=== PATIENT | female | born 1980 | race Caucasian/White ===

== ENCOUNTER 2016-05-24 09:49 | Observation (INO) | payer BC ==
[~2016-05-24] VITALS: Ht 167.6 cm; Wt 88.3 kg
[2016-05-24 09:58] VITALS: Ht 167.6 cm; Wt 88.3 kg
[2016-05-24] MEDS ORDERED: SODIUM CHLORIDE 0.9% 1000ML 500 ML IV STA (10:06)
[2016-05-24] MEDS ORDERED: KETOROLAC TROMETHAMINE 30 MG/ML VIAL IV STA (10:06)
[2016-05-24] MEDS ORDERED: PROMETHAZINE HCL INJ 12.5 MG in SODIUM CHLORIDE 0.9% 50ML 50 ML IV SCH (10:06)
[2016-05-24] MEDS ORDERED: PROMETHAZINE HCL INJ 25 MG/ML 1 ML VIAL IV STA (10:06)
[2016-05-24] MEDS ORDERED: MoRPHine SULFATE 4 MG/ML 1 ML CARP\\VIAL IV PRN (10:15)
--- NOTE | 2016-05-24 10:15 | EMERGENCY ROOM VISIT NOTE ---
History Report prepared by Jose Antonio: Jessica Brandt Under the Supervision of: Dr. Wilfrid Cordoba M.D. First contact with patient: 10:04 Chief Complaint: ABDOMINAL PAIN Stated Complaint: ECTOPIC Nursing Triage Summary: Abdominal pain with vaginal bleeding. States has irregular periods. She said there is a chance she could be . History of Present Illness The patient is a 35 year old female who presents to the Emergency Room with complaints of persistent abdominal pain since 0 last night. She describes the pain as feeling like "cramping" and rates it as a 10/10 in severity. She notes the pain does radiate into her back and she has never experienced anything like these symptoms before. She has not taken any medication for her discomfort yet. Last night she experienced some nausea, but did not vomit. The patient also admits to vaginal bleeding for the past 5 days. She states her last menstrual cycle was in mid-April and reports she has been getting her periods "twice a month" for the past "few months". She denies any history of painful periods in the past. She notes she did not think she was due for her period yet and states there is a chance she could be . She has never been before. The patient also admits to some breast tenderness for the past 2 to 3 days. She denies any cough or cold symptoms, fevers, dysuria or hematuria. Her VIDEO COORDINATOR is the [facility]. Source of History: patient Onset: 2199 last night Position: abdomen Symptom Intensity: 10/10 Quality: cramping Timing: other (persistent) Associated Symptoms: + nausea, No cough (cough or cold symptoms), No fevers , No urinary symptoms, No vomiting Review of Systems See HPI for pertinent positives & negatives. A total of 10 systems reviewed and were otherwise negative. Past Medical & Surgical Medical Problems: (1) Ectopic (2) ectopic Surgical Problems: (1) History of left knee surgery (2) History of right knee surgery (3) History of shoulder surgery (4) History of tonsillectomy Family History Diabetes mellitus FH: heart disease FHx: cancer Social History Smoking Status: Never Smoker Alcohol Use: occasionally Drug Use: none Marital Status: Housing Status: lives with family Occupation Status: unemployed Current/Historical Medications Scheduled Cholecalciferol (Vitamin D), 1 TAB PO DAILY Cyanocobalamin (Vitamin B12), 1 TAB PO DAILY Vitamins C & E (Vitamin C), 1 CAP PO DAILY Allergies Coded Allergies: Red Dye (Verified Allergy, Unknown, ANAPHYLAXIS, 05/24/16) Physical Exam Vital Signs Date Time Temp Pulse Resp B/P Pulse Ox O2 Delivery O2 Flow Rate FiO2 05/24/16 14:14 69 16 111/72 98 05/24/16 12:51 68 16 117/65 97 Room Air 05/24/16 12:16 68 16 117/65 95 Room Air 05/24/16 10:41 63 16 105/67 98 Room Air 05/24/16 09:58 36.6 70 18 127/78 96 Room Air Physical Exam GENERAL: Patient is in moderate distress secondary to pain. HEENT: No acute trauma, normocephalic atraumatic, mucous membranes moist, no nasal congestion, no scleral icterus. NECK: No stridor, no adenopathy, no meningismus, trachea is midline. LUNGS: Clear to auscultation bilaterally, no wheeze, no rhonchi, breath sounds equal. HEART: Without murmurs gallops or rubs, regular rate and rhythm. ABDOMEN: Moderately diffusely tender, no peritonitis, no hernia, no distention. EXTREMITIES: No cyanosis or edema, full range of motion of all the joints without pain or difficulty, no signs for acute trauma. NEUROLOGIC: Oriented x 3, no acute motor or sensory deficits, no focal weakness. SKIN: No rash, no jaundice, no diaphoresis. Medical Decision & Procedures ER Provider Diagnostic Interpretation: This X-Ray was reviewed and interpreted by myself and the radiologist. KUB IMPRESSION: 1. No evidence of pathologic bowel dilatation 2. Nonspecific left pelvic basin calcifications. Electronically signed by: Mian Argueta M.D. 05/24/2016 10:32 AM This Ultrasound was reviewed and interpreted by the radiologist and reviewed by myself. EXAMINATION: PELVIC ULTRASOUND (transabdominal and endovaginal scanning) IMPRESSION: 1. No intrauterine gestational sac identified 2. Complex fluid, likely hemorrhagic superior to the uterus in the right adnexal region 3. Equivocal saclike structure in the right adnexal region 4. Given the history of a positive test, and hemorrhagic right adnexal fluid, an ectopic must be considered. Correlation with clinical findings and quantitative beta hCGs is recommended Electronically signed by: Mian Argueta M.D. 05/24/2016 12:00 PM Laboratory Results 05/24/16 10:15 Red Blood Count 4.07, Mean Corpuscular Volume 92.9, Mean Corpuscular Hemoglobin 31.2, Mean Corpuscular Hemoglobin Concent 33.6, Mean Platelet Volume 11.0, Neutrophils (%) (Auto) 72.6, Lymphocytes (%) (Auto) 18.3, Monocytes (%) (Auto) 8.0, Eosinophils (%) (Auto) 0.6, Basophils (%) (Auto) 0.2, Neutrophils # (Auto) 7.64, Lymphocytes # (Auto) 1.93, Monocytes # (Auto) 0.84, Eosinophils # (Auto) 0.06, Basophils # (Auto) 0.02 05/24/16 10:15 Test 05/24/16 10:15 05/24/16 13:19 White Blood Count 10.52 K/uL (4.8-10.8) Red Blood Count 4.07 M/uL (4.2-5.4) Hemoglobin 12.7 g/dL (12.0-16.0) Hematocrit 37.8 % (37-47) Mean Corpuscular Volume 92.9 fL (80-100) Mean Corpuscular Hemoglobin 31.2 pg (25-34) Mean Corpuscular Hemoglobin Concent 33.6 g/dl (32-36) Platelet Count 239 K/uL (130-400) Mean Platelet Volume 11.0 fL (7.4-10.4) Neutrophils (%) (Auto) 72.6 % Lymphocytes (%) (Auto) 18.3 % Monocytes (%) (Auto) 8.0 % Eosinophils (%) (Auto) 0.6 % Basophils (%) (Auto) 0.2 % Neutrophils # (Auto) 7.64 K/uL (1.4-6.5) Lymphocytes # (Auto) 1.93 K/uL (1.2-3.4) Monocytes # (Auto) 0.84 K/uL (0.11-0.59) Eosinophils # (Auto) 0.06 K/uL (0-0.5) Basophils # (Auto) 0.02 K/uL (0-0.2) RDW Standard Deviation 42.4 fL (36.4-46.3) RDW Coefficient of Variation 12.5 % (11.5-14.5) Immature Granulocyte % (Auto) 0.3 % Immature Granulocyte # (Auto) 0.03 K/uL (0.00-0.02) Anion Gap 12.0 mmol/L (3-11) Est Creatinine Clear Calc Drug Dose 146.4 ml/min Estimated GFR () 136.9 Estimated GFR (Non- 118.1 BUN/Creatinine Ratio 23.0 (10-20) Calcium Level 8.8 mg/dl (8.5-10.1) Total Bilirubin 0.5 mg/dl (0.2-1) Aspartate Amino Transf (AST/SGOT) 13 U/L (15-37) Alanine Aminotransferase (ALT/SGPT) 22 U/L (12-78) Alkaline Phosphatase 59 U/L (45-117) Total Protein 7.1 gm/dl (6.4-8.2) Albumin 3.7 gm/dl (3.4-5.0) Globulin 3.4 gm/dl (2.5-4.0) Albumin/Globulin Ratio 1.1 (0.9-2) Lipase 140 U/L (73-393) Human Chorionic Gonadotropin, Qual POS (NEG) Human Chorionic Gonadotropin, Quant 235 mIU/mL Urine Color YELLOW Urine Appearance CLEAR (CLEAR) Urine pH 6.0 (4.5-7.5) Urine Specific [place] 1.006 (1.000-1.030) Urine Protein NEG (NEG) Urine Glucose (UA) NEG (NEG) Urine Ketones NEG (NEG) Urine Occult Blood TRACE (NEG) Urine Nitrite NEG (NEG) Urine Bilirubin NEG (NEG) Urine Urobilinogen NEG (NEG) Urine Leukocyte Esterase NEG (NEG) Urine WBC (Auto) 0 /hpf (0-5) Urine RBC (Auto) 0-4 /hpf (0-4) Urine Hyaline Casts (Auto) 1-5 /lpf (0-5) Urine Epithelial Cells (Auto) 5-10 /lpf (0-5) Urine Bacteria (Auto) NEG (NEG) Laboratory results reviewed by me. Medications Administered Medications (Trade) Dose Ordered Sig/Asif Route Start Time Stop Time Status Last Admin Dose Admin Sodium Chloride (Nss 1000ml) 500 ml @ 999 mls/hr Q31M STAT IV 05/24/16 10:06 05/24/16 10:36 DC 1/14/17 10:24 999 MLS/HR Morphine Sulfate (MoRPHine SULFATE INJ) 4 mg Q30M PRN IV 05/24/16 10:15 06/07/16 10:14 05/24/16 10:41 4 MG Ketorolac Tromethamine 30 mg 30 mg NOW STAT IV 05/24/16 10:06 05/24/16 10:11 DC 05/24/16 10:41 30 MG Promethazine HCl/ Sodium Chloride (Phenergan Inj/ Nss 50ml) 50.5 ml @ 202 mls/hr TODAY@1006 IV 05/24/16 10:06 05/24/16 11:30 DC 05/24/16 10:41 202 MLS/HR Bupivacaine HCl (Marcaine 0.5% MPF Inj) 12 ml ONE ONCE INJ 05/24/16 16:54 05/24/16 16:55 DC 05/24/16 16:00 12 ML ED Course 1005: The patient was evaluated in room B12B. A complete history and physical exam was performed. 1006: Promethazine HCl 12.5 mg/NSS 50.5 ml @ 202 mls/hr IV, Toradol 30 mg IV, NSS 500 ml @ 999 mls/hr IV. 1015: Morphine Sulfate 4 mg IV. 1219: I reevaluated the patient. I discussed my plan to have VIDEO COORDINATOR come evaluate her and she verbalized complete understanding and agreement. 1226: I discussed the patients case with Skyler Berumen VIDEO COORDINATOR. He would like her to remain NPO and will be in to evaluate her. 1405: I discussed the patient's case with Skyler Berumen VIDEO COORDINATOR. He is going to take the patient to the OR. Medical Decision The differential diagnoses considered include: Intestinal colic, painful menses , or ectopic , biliary colic, appendicitis, pancreatitis, UTI and viral illness. There is no leukocytosis or worrisome anemia. No significant electrolyte abnormality, kidney failure or hepatitis. There is no pancreatitis. testing is positive, beta quantitative is quite low. KUB is unremarkable. Pelvic ultrasound is suggestive of a possible right-sided ruptured ectopic . Urinalysis does not show evidence for infection. The patient received IV saline, IV Toradol, IV morphine and IV Phenergan, she is more comfortable but still having pain. I spoke with the on-call VIDEO COORDINATOR doctor. The patient was seen by VIDEO COORDINATOR. The patient is going to the operating room for the possibility of a ruptured ectopic . I talked to the patient about my concerns and findings. Consults Time Called: 1218 Consulting Physician: Skyler Berumen VIDEO COORDINATOR Returned Call: 1226 I discussed the patients case with Skyler Berumen VIDEO COORDINATOR. He would like her to remain NPO and will be in to evaluate her. Impression Primary Impression: Vaginal bleeding Additional Impressions: Pelvic hematoma Scribe Attestation The scribe's documentation has been prepared under my direction and personally reviewed by me in its entirety. I confirm that the note above accurately reflects all work, treatment, procedures, and medical decision making performed by me. Departure Information Dispostion Being Evaluated By Surgeon (The patient is being taken to the OR by Skyler Berumen VIDEO COORDINATOR) Referrals [place] [facility] (PCP) Patient Instructions [facility] Problem Qualifiers
[2016-05-24 10:34] LABS: BASO % 0.2 %; BASO ABS # 0.02 K/uL (0-0.2); COMPLETE YES; EOS % 0.6 %; HEMATOCRIT 37.8 % (37-47); IG% 0.3 %; LYMPH % 18.3 %; LYMPH ABS # 1.93 K/uL (1.2-3.4); MEAN CELL VOLUME 92.9 fL (80-100); MEAN CORPUSCULAR HEMOGLOBIN 31.2 pg (25-34); MEAN CORPUSCULAR HGB CONC 33.6 g/dl (32-36); NEUT % 72.6 %; PLATELET COUNT 239 K/uL (130-400); RED BLOOD COUNT 4.07 M/uL (4.2-5.4); WHITE BLOOD COUNT 10.52 K/uL (4.8-10.8)
--- NOTE | 2016-05-24 10:34 | DIAGNOSTIC IMAGING REPORT ---
KUB CLINICAL HISTORY: Diffuse abdominal pain. COMPARISON STUDY: No previous studies for comparison. FINDINGS: There is no pathologic bowel dilatation. There are nonspecific left pelvic basin calcifications. There are no calcification suspicious for renal calculi. IMPRESSION: 1. No evidence of pathologic bowel dilatation 2. Nonspecific left pelvic basin calcifications. Electronically signed by: Mian Argueta M.D. 05/24/2016 10:32 AM Dictated Date/Time: 05/24/2016 10:31 AM
[2016-05-24 10:52] LABS: CALCIUM 8.8 mg/dl (8.5-10.1); CREATININE 0.6 mg/dl (0.60-1.20); POTASSIUM 3.9 mmol/L (3.5-5.1)
[2016-05-24] MEDS ORDERED: CHOL400T5 PO (10:52)
[2016-05-24] MEDS ORDERED: VITACAP26 PO (10:52)
[2016-05-24] MEDS ORDERED: CYAN100020 PO (10:52)
[2016-05-24 10:54] LABS: ALB/GLOB RATIO 1.1 (0.9-2)
[2016-05-24 10:55] LABS: PREG INTERNAL NEGATIVE QC NEG CLEAR BACKGROUND; PREG INTERNAL POSITIVE QC POS CONTROL LINE
--- NOTE | 2016-05-24 12:02 | DIAGNOSTIC IMAGING REPORT ---
EXAMINATION: PELVIC ULTRASOUND (transabdominal and endovaginal scanning) CLINICAL HISTORY: Pelvic pain, nausea, vomiting, diarrhea. POSITIVE TEST. COMPARISON STUDY: None FINDINGS: The uterus measured 9.2 x 3.9 x 5.4 cm.. The endometrial stripe measured 6 mm. No intrauterine gestational sac is visualized.. The right ovary measured 22 x 22 x 19 mm. There is an equivocal saclike structure within the right adnexal region. There is complex free fluid/blood in the right adnexal region.. The left ovary measured 28 x 13 x 28 mm.. There is no ultrasonographic evidence of ovarian torsion. It should be noted that ovarian torsion can be present with normal Doppler ultrasonographic findings. The possibility of an ectopic must be entertained. An early intrauterine gestation, with a hemorrhagic right ovarian cyst could appear similar. Clinical correlation as well as correlation with quantitative beta hCGs is recommended. IMPRESSION: 1. No intrauterine gestational sac identified 2. Complex fluid, likely hemorrhagic superior to the uterus in the right adnexal region 3. Equivocal saclike structure in the right adnexal region 4. Given the history of a positive test, and hemorrhagic right adnexal fluid, an ectopic must be considered. Correlation with clinical findings and quantitative beta hCGs is recommended Electronically signed by: Mian Argueta M.D. 05/24/2016 12:00 PM Dictated Date/Time: 05/24/2016 11:55 AM
[2016-05-24 13:39] LABS: URINE APPEARANCE CLEAR (CLEAR); URINE BILIRUBIN NEG (NEG); URINE COLOR YELLOW; URINE NITRITE NEG (NEG); URINE SPECIFIC GRAVITY 1.006 (1.000-1.030); UROBILINOGEN NEG (NEG); ZZUR CULT IF INDIC CLEAN CATCH NO
[2016-05-24 13:44] LABS: MANUAL MICROSCOPIC REQUIRED? NO; REVIEW REQ? NO
[2016-05-24] MEDS ORDERED: LACTATED RINGER'S 1000ML 1,000 ML IV SCH (13:49)
[2016-05-24] MEDS ORDERED: ONDANSETRON INJ 2 MG/ML 2 ML VIAL IV PRN ×3 (14:00→17:30)
[2016-05-24] MEDS ORDERED: ROCURONIUM BROMIDE 10 MG/ML 5 ML VIAL ONE (14:06)
[2016-05-24] MEDS ORDERED: NEOSTIGMINE METHYLSULFATE 5 MG/5 ML SYR ONE (14:06)
[2016-05-24] MEDS ORDERED: LIDOCAINE HCL 2% 2 ML VIAL (20MG/ML) ONE (14:06)
[2016-05-24] MEDS ORDERED: FENTANYL CITRATE INJ 50 MCG/1 ML 2 ML VIAL ONE (14:06)
[2016-05-24] MEDS ORDERED: MIDAZOLAM HCL 1 MG/ML 2ML VIAL ONE (14:06)
[2016-05-24] MEDS ORDERED: GLYCOPYRROLATE INJ 0.2 MG/ML VIAL ONE ×5 (14:06→15:39)
[2016-05-24] MEDS ORDERED: PROPOFOL IV EMULSION 10 MG/ML 20 ML VIAL IV ONE (14:06)
[2016-05-24] MEDS ORDERED: DEXAMETHASONE SOD INJ 4 MG/ML VIAL ONE ×2 (14:06→15:39)
[2016-05-24] MEDS ORDERED: ONDANSETRON INJ 2 MG/ML 2 ML VIAL ONE (14:06)
[2016-05-24] MEDS ORDERED: SUCCINYLCHOLINE CHLORIDE 20 MG/ML 10 ML VIAL IV ONE (14:35)
--- NOTE | 2016-05-24 14:43 | HISTORY & PHYSICAL EXAMINATION ---
DATE OF ADMISSION: 05/24/2016 CHIEF COMPLAINT: Abdominal pain. HISTORY OF PRESENT ILLNESS: The patient is a 35-year-old white female para 0-0-0-0 last menstrual period mid April unsure has been having irregular cycles last several months having 2 periods per month. Prior to that she denied ever having any abnormal cycles. She states that she has been trying to conceive, has not had any recent visits to our office and otherwise has been healthy. She states that last Thursday she started having some vaginal bleeding, passed a couple clots, does not know if this was tissue. She presented today with acute onset of right lower quadrant pain associated with some mild back pain and generalized epigastric pain and also radiating into the left. Hemodynamically she has been stable. She states that she has no history of in the past, no abortions and has not had any STDs in the past. The pain was rated as 10/10 on admission. She currently rates the pain as an 8/10. She has not had any nausea or vomiting. Her bowels are normal. Her appetite is good. She feels hungry. FAMILY HISTORY: Noncontributory. PAST MEDICAL HISTORY: Negative. PAST SURGICAL HISTORY: Positive for bilateral knee surgery, shoulder surgery and tonsillectomy. She also had a LEEP approximately 7 years ago for an abnormal Pap smear. SOCIAL HISTORY: Denies smoking, alcohol or drug use. She is trying to conceive and otherwise healthy. ALLERGIES: INCLUDE RED DYE. MEDICATIONS: Vitamin D, vitamin B12, and vitamin C. PHYSICAL EXAMINATION: VITAL SIGNS: Temperature 36.6, pulse 70, respirations 18, blood pressure 127/78, pulse ox is 96 on room air. GENERAL APPEARANCE: The patient is alert and oriented with no acute distress. LUNGS: Clear to auscultation. HEART: Regular rate and rhythm. ABDOMEN: Slightly tender, both on the right and left. There is no rebound or guarding. There is no abdominal distention, no evidence of any mass or hernia. EXTREMITIES: Within normal limits. NEUROLOGICALLY: Intact. SKIN: Warm and dry. No rash. PELVIC EXAMINATION: Reveals that cervix is closed. There is minimal spotting in the vagina. There is no tissue noted. There is no cervical motion tenderness and bilateral exam reveals tenderness but no rebound or guarding. LABORATORY DATA: White blood cell count 10.52, hemoglobin is 12.7, hematocrit is 37.8, platelet count is 239. Electrolytes are within normal limits. Her quantitative hCG is 235. Her urine is negative. IMAGING STUDIES: KUB no evidence of bowel problems or any pelvic calcifications. Pelvic ultrasound reveals no intrauterine gestational sac. The right ovary is 22 x 22 x 19 mm, equivocal sac like structure within the right adnexa, some complex free fluid or blood in the right adnexal region, left ovary was normal. Doppler findings are negative. ASSESSMENT: 1. Possible ectopic . 2. Possible hemorrhagic ovarian cyst, or. 3. Possible failed early intrauterine . PLAN: I discussed in detail with the patient and her will bring the patient to the OR for diagnostic laparoscopy to evaluate possibility of an ectopic versus an ovarian hemorrhagic cyst. Explained in detail, the patient will consent and all consents were obtained.
[2016-05-24] MEDS ORDERED: BUPIVACAINE 0.5 % 5 MG/1 ML MPF 30ML VIAL INJ ONE (16:54)
[2016-05-24] MEDS ORDERED: SODIUM CHLORIDE 0.9% 1000ML 1,000 ML IV SCH (17:13)
[2016-05-24] MEDS ORDERED: OXYCODONE/ACETAMINOPHEN 5-325 TAB PO PRN ×2 (17:15)
[2016-05-24] MEDS ORDERED: MoRPHine SULFATE 2 MG/ML CARP IV PRN ×2 (17:15)
[2016-05-24] MEDS ORDERED: HYDROCODONE/ACETAMOPHEN 5/325MG TAB PO PRN ×4 (17:15)
[2016-05-24] MEDS ORDERED: IBUPROFEN 600 MG TAB PO PRN (17:15)
[2016-05-24] MEDS ORDERED: KETOROLAC TROMETHAMINE 30 MG/ML VIAL IV. PRN (17:15)
--- NOTE | 2016-05-24 17:19 | [facility] Post Operative Brief Note ---
Immediate Operative Summary Operative Date May 24, 2016. Pre-Operative Diagnosis Abdominal pain, possible ectopic Post-Operative Diagnosis Left ruptured ectopic hemoperitoneum Procedure(s) Performed Diagnostic laparoscopy, left partial salpingectomy, evacuation of left hemoperitoneum Surgeon Dr. Kuhn Truck Chauffeur Surgeon(s) Shonna RN Estimated Blood Loss 400 ml Findings ruptured left ectopic hemoperitoneum Fluids (cc crystalloids) LR Specimens A: left ruptured ectopic , portion of left fallopian tube Drains Rice with clear urine Anesthesia General Complication(s) None Disposition Recovery Room / PACU
[2016-05-24] MEDS ORDERED: EpHEDrine SULFATE INJ 50 MG/ML AMP IV PRN (17:30)
[2016-05-24] MEDS ORDERED: FENTANYL CITRATE INJ 50 MCG/1 ML 2 ML VIAL IV PRN (17:30)
[2016-05-24] MEDS ORDERED: HYDROmorphone INJ 1 MG/ML SYR IV PRN (17:30)
[2016-05-24] MEDS ORDERED: ATROPINE SULFATE 0.1 MG/ML 5ML SYR IV PRN (17:30)
--- NOTE | 2016-05-24 18:00 | Anesthesiology Progress Note ---
Anesthesia Post Op Note Date & Time May 24, 2016 at 17:59 Vital Signs Pain Intensity: 0 Vital Signs Past 12 Hours Date Time Temp Pulse Resp B/P Pulse Ox O2 Delivery O2 Flow Rate FiO2 05/24/16 17:20 37.1 78 11 112/69 100 Mask 10 05/24/16 14:14 69 16 111/72 98 05/24/16 12:51 68 16 117/65 97 Room Air 05/24/16 12:16 68 16 117/65 95 Room Air 05/24/16 10:41 63 16 105/67 98 Room Air 05/24/16 09:58 36.6 70 18 127/78 96 Room Air Notes Mental Status: alert / awake / arousable, participated in evaluation Pt Amnestic to Procedure: Yes Nausea / Vomiting: adequately controlled Pain: adequately controlled Airway Patency, RR, SpO2: stable & adequate BP & HR: stable & adequate Hydration State: stable & adequate Anesthetic Complications: no major complications apparent
[2016-05-24] MEDS ORDERED: IV FLUIDS COMPLETED PRN (18:15)
[2016-05-24 18:25] VITALS: BP 106/67; PULSE 70; TEMP 36.8; O2SAT 94
--- NOTE | 2016-05-24 18:31 | OPERATIVE REPORT ---
DATE OF OPERATION: 05/24/2016 PREOPERATIVE DIAGNOSIS: Abdominal pain, possible ectopic . POSTOPERATIVE DIAGNOSIS: Ruptured left ectopic and hemoperitoneum. PROCEDURES PERFORMED: Operative laparoscopy, left partial salpingectomy and evacuation of hemoperitoneum. SURGEON: Howard Kuhn MD AUTO BRAKE MECHANIC: Shonna, the nurse. EBL: 400 mL. FINDINGS: Ruptured left ectopic and hemoperitoneum. FLUIDS: LR SPECIMENS: Left portion of the fallopian tube with ectopic . DRAINS: Rice with clear urine. ANESTHESIA: General. COMPLICATIONS: None. The patient sent to PACU for recovery. CLINICAL HISTORY: The patient is a 35-year-old female, para 0-0-0-0, last menstrual period in April, who presents to the ER today with acute onset of lower abdominal pain, both right and left. Her test was positive. She had an hCG today of 235. She had diffuse pain. Ultrasound revealed possible ectopic. The patient was taken to the operating room for diagnostic and operative laparoscopy. DESCRIPTION OF PROCEDURE: Under satisfactory general anesthesia, the patient was prepped and draped in usual sterile fashion. After the patient was placed in the dorsal lithotomy position, a Rice catheter was placed. A weighted speculum was placed in the posterior vault of the vagina. An Allis clamp was placed on the anterior lip of the cervix and a sponge stick was then used for uterine manipulation. Attention was then directed abdominally where approximately 5 mL of 0.5% Marcaine were instilled infraumbilically. A stab wound was made with a #11 knife, Veress needle was inserted and this was tested with saline. Approximately 3 liters of carbon dioxide gas was then used creating a pneumoperitoneum. Veress needle was withdrawn. The incision was widened to approximately 1 cm and a #11 trocar was then inserted under direct visualization with laparoscope. Contents of the pelvic cavity were visualized. There was blood in the pelvis. The upper abdomen was explored and there was blood in the right paracolic gutter, upwards towards the liver. A second puncture was made in the midline and a 5 mm trocar was then inserted. Injection Molding Machine Tender was then used irrigating, clearing away the clots, debris and all the blood. The identification of left tubal that had ruptured was noted. The right tube and ovary were within normal limits. There was a right paratubal cyst, several cysts actually. A third puncture was then made on the left side and a 5 mm was inserted under direct visualization. A grasper was then inserted, grabbing the tube, then using the Harmonic scalpel and Kleppingers the tube was then removed partially with a partial salpingectomy done. After this procedure, the site of the resection was visualized and was dry. The EndoCatch bag was then inserted in the midline. The grasper was then used to place the ectopic in the bag. The bag was then closed and then removed through the main port intact. The specimen was then submitted to pathology. After this, the contents of the pelvic and abdominal cavity were then irrigated. The patient was then placed in a steep reverse Trendelenburg position, suctioning most of the blood that had accumulated. The estimated blood loss was approximately 400 mL. Final sponge, needle and instrument count were found to be correct. All remaining ports were then removed. The 2 instruments from the vagina were removed. Closure of the incisions were with 0 Vicryl for a deep stitch followed by 4-0 Monocryl and Steri-Strips. Clear urine was noted from the Rice. The patient was then placed supine and before the end of the procedure, 0.5% Marcaine was instilled in the suprapubic incision and in the left incision as well. I attest to the content of the Intraoperative Record and any orders documented therein. Any exceptions are noted below. KIM
[2016-05-24] MEDS ORDERED: NURSING VERBAL MED ORDER ONE (20:15)
[2016-05-24 20:35] VITALS: BP 109/71; PULSE 103; TEMP 36.9; O2SAT 96
[2016-05-24 23:15] VITALS: BP 115/70; PULSE 95; TEMP 36.4; O2SAT 94
[2016-05-25 04:42] LABS: HEMATOCRIT 34.6 % (37-47); MEAN CELL VOLUME 94.5 fL (80-100); MEAN CORPUSCULAR HEMOGLOBIN 31.4 pg (25-34); MEAN PLATELET VOLUME 10.9 fL (7.4-10.4); PLATELET COUNT 234 K/uL (130-400); RED BLOOD COUNT 3.66 M/uL (4.2-5.4)
[2016-05-25 05:07] LABS: MEAN CORPUSCULAR HGB CONC 33.2 g/dl (32-36)
[2016-05-25] MEDS ORDERED: OXYC-57 PO (06:55)
[2016-05-25] MEDS ORDERED: FRRS300 PO (06:55)
[2016-05-25] MEDS ORDERED: MTR600X PO (06:55)
--- NOTE | 2016-05-25 06:57 | Discharge Instructions ---
Discharge Instructions Admission Reason for Admission: Ectopic Discharge Discharge Diagnosis / Problem: RUPTURED ECTOPIC Discharge Goals Goal(s): Routine recovery after surgery Activity Recommendations Activity Limitations: as noted below Lifting Limitations: no more than 10 pounds Exercise/Sports Limitations: gradually increase as tolerated May Resume Sexual Activity: after follow-up appointment Shower/Bathe: no limitations Driving or Machine Use: resume 3 days after discharge . Instructions / Follow-Up Instructions / Follow-Up ACTIVITY RECOMMENDATIONS: * Avoid tampons, douching, hot tubs, pools, and intercourse until bleeding has stopped. * May shower as usual. * No strenuous activity for 24-48 hours. After 24-48 hours, you may do anything you feel like doing (driving and sports are okay). SPECIAL CARE INSTRUCTIONS: Special Diet: * Mild nausea may occur in the immediate post-operative period. * Take clear liquids such as tea, cola or bouillon until all nausea has subsided; you may then resume your normal diet. Special Care: * Light bleeding and vaginal spotting can last from a few days to 3-4 weeks. Call your doctor if bleeding becomes heavier than the heaviest part of your period. * Check your temperature twice a day for one week. If it goes above 100.4 degrees Fahrenheit (38.0 Celsius), notify your doctor. * Call your doctor's office for an appointment for 6 weeks after your surgery. FOLLOW-UP VISIT: Call your doctor's office for an appointment for 6 weeks after your surgery. Current Hospital Diet Patient's current hospital diet: Regular Diet Discharge Diet Recommended Diet: Regular Diet Fluid Restriction: None Procedures Procedures Performed: Diagnostic laparoscopy, left partial salpingectomy, evacuation of left hemoperitoneum Pending Studies Studies pending at discharge: no Medical Emergencies . Who to Call and When: Medical Emergencies: If at any time you feel your situation is an emergency, please call 911 immediately. . Non-Emergent Contact Non-Emergency issues call your: Primary Care Provider . . "Provider Documentation" section prepared by Howard Kuhn. VTE Core Measure Inpt VTE Proph given/why not?: Treatment not indicated
[2016-05-25 07:15] VITALS: BP 106/63; PULSE 75; TEMP 36.6; O2SAT 97
--- NOTE | 2016-05-25 07:16 | Surgery Progress Note ---
Surgery Progress Note Date of Service May 25, 2016. Subjective Post OP Day: 1 + ambulating, + diet, + feeling well, + flatus, + pain controlled Objective Vital Signs: Date Time Temp Pulse Resp B/P Pulse Ox O2 Delivery O2 Flow Rate FiO2 05/24/16 23:15 Room Air 05/24/16 23:15 36.4 95 18 115/70 94 Room Air 05/24/16 20:35 36.9 103 18 109/71 96 Room Air 05/24/16 18:25 36.8 70 16 106/67 94 Room Air 05/24/16 18:25 94 Room Air 05/24/16 18:09 68 17 05/24/16 18:09 68 17 97 05/24/16 18:08 106/66 05/24/16 18:03 104/58 05/24/16 18:01 36.8 05/24/16 17:59 72 14 95 05/24/16 17:59 72 19 96 05/24/16 17:58 104/64 05/24/16 17:55 72 23 05/24/16 17:55 72 23 96 05/24/16 17:53 102/60 05/24/16 17:50 63 18 94 05/24/16 17:50 67 18 94 05/24/16 17:48 100/62 05/24/16 17:43 98/69 05/24/16 17:40 61 18 100 05/24/16 17:40 62 18 05/24/16 17:38 110/59 05/24/16 17:35 67 22 100 05/24/16 17:35 64 20 100 05/24/16 17:33 107/61 05/24/16 17:29 98/75 05/24/16 17:25 64 21 05/24/16 17:25 64 21 100 05/24/16 17:23 109/65 05/24/16 17:20 69 23 100 05/24/16 17:20 37.1 78 11 112/69 100 Mask 10 05/24/16 17:20 67 18 100 05/24/16 14:14 69 16 111/72 98 05/24/16 12:51 68 16 117/65 97 Room Air 05/24/16 12:16 68 16 117/65 95 Room Air 05/24/16 10:41 63 16 105/67 98 Room Air 05/24/16 09:58 36.6 70 18 127/78 96 Room Air Abdomen: non tender, non distended, soft Incision(s): clean, dry, intact Extremities: non-tender, normal inspection, no pedal edema Laboratory Results: Results Past 24 Hours Test 05/24/16 10:15 05/24/16 13:19 05/25/16 04:30 Range/Units White Blood Count 10.52 13.70 4.8-10.8 K/uL Red Blood Count 4.07 3.66 4.2-5.4 M/uL Hemoglobin 12.7 11.5 12.0-16.0 g/dL Hematocrit 37.8 34.6 37-47 % Mean Corpuscular Volume 92.9 94.5 80-100 fL Mean Corpuscular Hemoglobin 31.2 31.4 25-34 pg Mean Corpuscular Hemoglobin Concent 33.6 33.2 32-36 g/dl Platelet Count 239 234 130-400 K/uL Mean Platelet Volume 11.0 10.9 7.4-10.4 fL Neutrophils (%) (Auto) 72.6 % Lymphocytes (%) (Auto) 18.3 % Monocytes (%) (Auto) 8.0 % Eosinophils (%) (Auto) 0.6 % Basophils (%) (Auto) 0.2 % Neutrophils # (Auto) 7.64 1.4-6.5 K/uL Lymphocytes # (Auto) 1.93 1.2-3.4 K/uL Monocytes # (Auto) 0.84 0.11-0.59 K/uL Eosinophils # (Auto) 0.06 0-0.5 K/uL Basophils # (Auto) 0.02 0-0.2 K/uL RDW Standard Deviation 42.4 44.0 36.4-46.3 fL RDW Coefficient of Variation 12.5 12.7 11.5-14.5 % Immature Granulocyte % (Auto) 0.3 % Immature Granulocyte # (Auto) 0.03 0.00-0.02 K/uL Sodium Level 141 136-145 mmol/L Potassium Level 3.9 3.5-5.1 mmol/L Chloride Level 107 98-107 mmol/L Carbon Dioxide Level 22 21-32 mmol/L Anion Gap 12.0 3-11 mmol/L Blood Urea Nitrogen 14 7-18 mg/dl Creatinine 0.60 0.60-1.20 mg/dl Est Creatinine Clear Calc Drug Dose 146.4 ml/min Estimated GFR () 136.9 Estimated GFR (Non- 118.1 BUN/Creatinine Ratio 23.0 10-20 Random Glucose 94 70-99 mg/dl Calcium Level 8.8 8.5-10.1 mg/dl Total Bilirubin 0.5 0.2-1 mg/dl Aspartate Amino Transf (AST/SGOT) 13 15-37 U/L Alanine Aminotransferase (ALT/SGPT) 22 12-78 U/L Alkaline Phosphatase 59 45-117 U/L Total Protein 7.1 6.4-8.2 gm/dl Albumin 3.7 3.4-5.0 gm/dl Globulin 3.4 2.5-4.0 gm/dl Albumin/Globulin Ratio 1.1 0.9-2 Lipase 140 73-393 U/L Human Chorionic Gonadotropin, Qual POS NEG Human Chorionic Gonadotropin, Quant 235 113 mIU/mL Urine Color YELLOW Urine Appearance CLEAR CLEAR Urine pH 6.0 4.5-7.5 Urine Specific [place] 1.006 1.000-1.030 Urine Protein NEG NEG Urine Glucose (UA) NEG NEG Urine Ketones NEG NEG Urine Occult Blood TRACE NEG Urine Nitrite NEG NEG Urine Bilirubin NEG NEG Urine Urobilinogen NEG NEG Urine Leukocyte Esterase NEG NEG Urine WBC (Auto) 0 0-5 /hpf Urine RBC (Auto) 0-4 0-4 /hpf Urine Hyaline Casts (Auto) 1-5 0-5 /lpf Urine Epithelial Cells (Auto) 5-10 0-5 /lpf Urine Bacteria (Auto) NEG NEG Assessment & Plan regular diet pod#1 DISCHARGED
[2016-05-25 10:14] VITALS: BP 106/63; PULSE 75; TEMP 36.6; O2SAT 97
--- NOTE | 2016-06-05 10:54 | DISCHARGE SUMMARY ---
HISTORY OF PRESENT ILLNESS: The patient is a 35-year-old female, para 0-0-0-0 who presented to the ER with acute onset of right lower quadrant pain. The patient had generalized pain. Her hCG was positive due to continued pain and presence of a mass in the ovary. She was taken to the operating room for possible ectopic . An operative laparoscopy was performed under general anesthesia, a hemoperitoneum was noted with a ruptured ectopic. The patient had a left partial salpingectomy performed without any difficulty. Hospital course was unremarkable. The patient was discharged home the next morning in a stable condition. Homegoing instructions were given. Condition on discharge is stable. MEDICATIONS ON DISCHARGE: Include iron, ibuprofen and oxycodone. Followup will be in the office in 1 week.
== END 2016-05-25 10:27 | disposition home or self-care (01) ==
LOC: ENRESERVTM → ENRESERVDT → C.EDB 09:51 → C.MS4N 17:52
PROVIDERS: ADMIT Obstetrics & Gynecology; ATTEND Obstetrics & Gynecology
DX: O00.90 Unspecified ectopic pregnancy without intrauterine pregnancy (principal); K66.1 Hemoperitoneum; Z83.3 Family history of diabetes mellitus; Z82.49 Family history of ischemic heart disease and other diseases of the circulatory system

== ENCOUNTER 2017-12-25 11:58 | Outpatient (CLI) | payer BC ==
[~2017-12-25] VITALS: Ht 167.6 cm; Wt 100.2 kg
[2017-12-25 12:59] VITALS: Ht 167.6 cm; Wt 100.2 kg
[2017-12-25] MEDS ORDERED: PRENTAB26 PO (13:01)
[2017-12-25 13:09] LABS: BASO % 0.2 %; BASO ABS # 0.02 K/uL (0-0.2); EOS % 0.4 %; EOS ABS # 0.04 K/uL (0-0.5); HEMATOCRIT 35.8 % (37-47); HEMOGLOBIN 12.2 g/dL (12.0-16.0); IG# 0.05 K/uL (0.00-0.02); LYMPH % 17.4 %; LYMPH ABS # 1.91 K/uL (1.2-3.4); MEAN CORPUSCULAR HEMOGLOBIN 32.4 pg (25-34); MEAN CORPUSCULAR HGB CONC 34.1 g/dl (32-36); MEAN PLATELET VOLUME 11.4 fL (7.4-10.4); MONO % 6.4 %; NEUT % 75.1 %; NEUT ABS # 8.27 K/uL (1.4-6.5); PLATELET COUNT 223 K/uL (130-400); RED CELL DISTRIBUTION WIDTH CV 13.6 % (11.5-14.5); RED CELL DISTRIBUTION WIDTH SD 46.6 fL (36.4-46.3); WHITE BLOOD COUNT 10.99 K/uL (4.8-10.8)
--- NOTE | 2017-12-25 17:16 | Progress Note ---
Progress Note Date of Service Dec 25, 2017. Progress Note Outpatient note 37 F [id number] at 34.4 weeks seen for labor labor and irregular contractions. FFN is negative. UA with ketones. CBC normal. Cervix unchanged. Closed and thick. FHT Cat 1 with contractions spaced out every 15 minutes. Will discharge home.
== END 2017-12-25 17:45 | disposition home or self-care (01) ==
LOC: C.OPB 11:58 → C.LD 11:59 → C.OPB 17:45
PROVIDERS: ATTEND Obstetrics & Gynecology
DX: O62.9 Abnormality of forces of labor, unspecified (principal); O09.513 Supervision of elderly primigravida, third trimester; Z3A.34 34 weeks gestation of pregnancy

== ENCOUNTER 2021-11-05 19:19 | Inpatient (IN) ==
[2021-11-05] MEDS ORDERED: SODIUM CHLORIDE 0.9% 1000ML 2,000 ML IV ONE (19:32)
[2021-11-05] MEDS ORDERED: fentaNYL citrate 100 MCG/2 ML VIAL IV ONE (19:33)
[2021-11-05] MEDS ORDERED: ONDANSETRON INJ 2 MG/ML 2 ML VIAL IV STA ×2 (19:33→20:30)
[2021-11-05] MEDS ORDERED: SODIUM CHLORIDE 0.9% 250 ML IV PRN ×2 (19:49→21:47)
[2021-11-05 19:52] LABS: Hematocrit (blood only) 28.6 % (37-47); Hemoglobin 9.3 g/dL (12.0-16.0); Mean Corpuscular Hemoglobin 31.3 pg (25-34); Mean Corpuscular Hgb Conc 32.5 g/dL (32-36); Mean Corpuscular Volume 96.3 fL (80-100); Mean Platelet Volume 9.8 fL (7.4-10.4); Platelet Count 273 K/uL (130-400); RDW Coefficient of Variation 12.6 % (11.5-14.5); RDW Standard Deviation 44.2 fL (36.4-46.3); Red Blood Count 2.97 M/uL (4.2-5.4); White Blood Count 20.83 K/uL (4.8-10.8)
[2021-11-05 20:02] LABS: iSTAT Creatinine 0.9 mg/dl (0.6-1.3); iSTAT Hemoglobin 9.2 g/dl (12.0-16.0); iSTAT Ionized Calcium 1.21 mmol/l (1.12-1.32); iSTAT Potassium 4.4 mmol/L (3.3-5.0)
[2021-11-05 20:12] LABS: Immature Granulocytes # (auto) 0.12 K/uL (0.00-0.02); Immature Granulocytes % (auto) 0.6 %; Lymphocytes # (auto) 0.92 K/uL (1.2-3.4); Lymphocytes % (auto) 4.4 %; Monocytes % (auto) 3.8 %; Neutrophils # (auto) 18.99 K/uL (1.4-6.5); Neutrophils % (auto) 91.2 %
[2021-11-05] MEDS ORDERED: LACTATED RINGER'S 1,000 ML IV SCH ×2 (20:15→23:45)
[2021-11-05 20:18] LABS: Partial Thromboplastin Ratio 0.8; Partial Thromboplastin Time 22.5 Seconds (21.0-31.0); Prothrombin Time 10.3 Seconds (9.0-12.0)
--- NOTE | 2021-11-05 20:20 | History & Physical Bridge Note ---
Date of Service November 05, 2021 History & Physical Bridge Note I have examined the patient, reviewed the History & Physical and in the interval since the performance of the History & Physical I have noted the following changes of clinical significance: no changes noted
[2021-11-05 20:21] LABS: Albumin Level 3.8 gm/dl (3.4-5.0); BUN Creatinine Ratio 30.2 (10-20); Bilirubin,Total 0.4 mg/dl (0.2-1.0); Calcium 8.4 mg/dl (8.5-10.1); Creatinine Clr Calc Pharmacy 80.2 ml/min; Est GFR (African American) 75.5 ml/min; Est GFR (Non-African American) 65.2 ml/min; Potassium 4.4 mmol/L (3.5-5.1); Total Protein 6.3 gm/dl (6.0-8.3)
--- NOTE | 2021-11-05 20:34 | Ultrasound Report ---
ULTRASOUND OF THE PELVIS CLINICAL HISTORY: Pelvic pain. Hypotension. .. COMPARISON STUDY: Pelvic ultrasound dated 10/22/2021. TECHNIQUE: Real-time, grayscale, and color flow sonography of the pelvis is performed transabdominall y. Images are reviewed in the transverse and longitudinal planes. FINDINGS: Uterus: The uterus is normal in size and echotexture, measuring 10.0 x 5.1 x 5.9 cm. Endometrium: The endometrium is thickened and heterogeneous measuring up to 1.9 cm. No intrauterine g estation is identified. Ovaries: The ovaries were not visualized due to hemorrhage in the pelvis. Pelvis: Complex free fluid in the pelvis likely represents hemorrhage. Free fluid is also seen below the liver. There is a 2.5 cm complex structure containing a yolk sac and pole anterior to the u terus in the right adnexa. This is consistent with an ectopic . The crown-rump length measur es 4.37 cm, corresponding to an estimated age of 6 weeks 1 day. IMPRESSION: 1. An ectopic is identified anterior to the uterus slightly to the right of midline. 2. Hemoperitoneum throughout the pelvis indicates rupturing ectopic. Surgical assessment is advised. 3. The ovaries were not visualized due to surrounding hemoperitoneum. 4. The endometrium is thickened and heterogeneous measuring up to 1.9 cm. No intrauterine gestation i s seen. ACT 112: Negative or not required by law. Electronically signed by: Wilfrid Cruz M.D. 11/05/2021 8:32 PM
--- NOTE | 2021-11-05 20:41 | History and Physical Report ---
DATE OF ADMISSION: 11/05/2021. HISTORY OF PRESENT ILLNESS: The patient is a 41-year-old G3, P1. She is about 7 weeks , who was found unresponsive at home today after she got up early this morning. She was rushed to the Emergency Room. In the ER, the patient's vitals, blood pressure 72/53. A stat ultrasound showed hemoperitoneum. The patient is presently being transfused and her present diagnosis is ruptured ectopic on the right. PAST MEDICAL HISTORY: No history of diabetes, hypertension, or asthma. PAST SURGICAL HISTORY: History of ectopic on the left. SOCIAL HISTORY: The patient denies tobacco, drug or alcohol use. FAMILY HISTORY: Noncontributory. MEDICATIONS: None. PHYSICAL EXAMINATION: VITAL SIGNS: Blood pressure 72/53, pulse 100, respirations 28. HEART: S1 and S2, regular rhythm and rate. LUNGS: Clear to auscultation bilaterally. ABDOMEN: Tender. EXTREMITIES: No cyanosis, clubbing or edema. PELVIC: Shows minimal bleeding. ASSESSMENT AND PLAN: A 41-year-old G3, P1 with suspected ruptured ectopic . The patient is hemodynamically unstable. She has been receiving blood products and IV fluids. Plan is to take patient to the operating room for operative laparoscopy, possibly right salpingo-oophorectomy, possible laparotomy. The patient's has signed the consent. I am able to talk to the patient, and agreed to proceed with surgery. We discussed risks of surgery including infection, bleeding, damage to abdominal organs including bowel, bladder, uterus, and sterility. We will proceed to surgery. Job ID: [id number] [facility]
--- NOTE | 2021-11-05 20:54 | Anesthesiology Consultation ---
Date of Service November 05, 2021 Assessment & Plan (1) Encounter for pre-operative examination: Chart Review Chart Review: Acceptable Risk for Surgery History Surgery Operation Date: 11/05/21 21:30 Proposed Procedures p Laparoscopic Ectopic - Wilver Maloney MD Height/Weight Height: 5 ft 6 in Weight: 93 kg Allergies Allergy/AdvReac Type Severity Reaction Status Date / Time shrimp Allergy Severe ANAPHYLAXIS Verified 11/05/21 20:23 red dye Allergy Unknown ANAPHYLAXIS Verified 11/05/21 20:23 Medications Home Medications Medication Instructions Recorded Confirmed Last Taken acetaminophen 500 mg tablet 1,000 mg PO Q6H PRN 10/22/21 11/05/21 10/22/21 (Tylenol Extra Strength) acetaminophen 160 mg/5 mL oral 0 mg PO QID PRN 11/05/21 11/05/21 11/05/21 suspension (Children's Acetaminophen) ondansetron HCl 4 mg tablet 0 mg PO DIRECTED PRN 11/05/21 11/05/21 11/05/21 prenat.vits,delmar,xvf-[id number]-[id number] 1 tab PO DAILY 11/05/21 11/05/21 Unknown Active Medications Generic Name Dose Route Start Last Admin Trade Name Freq PRN Reason Stop Dose Admin Sodium Chloride 2,000 mls @ 999 mls/hr 11/05/21 19:32 11/05/21 19:30 Nss 1000ml IV 11/05/21 21:32 999 mls/hr .Q2H1M ONE Administration Past Medical History Medical History GERD (gastroesophageal reflux disease) Past Family History Family History Family/Other Heart disease Uncle Grandmother Heart disease Breast cancer Grandfather Diabetes Father Diabetes Brother Thyroid disorder Past Surgical History Surgical History H/O wisdom tooth extraction S/P knee surgery S/P shoulder surgery S/P tonsillectomy and adenoidectomy Social History Smoking Status: Unknown if ever smoked Hx Alcohol Use: No Hx Substance Use: No Physical Exam Vital Signs Last Vital Signs Temp 36.5 C 11/05/21 20:44 Pulse 77 11/05/21 20:45 Resp 28 H 11/05/21 20:45 BP 86/61 L 11/05/21 20:45 Pulse Ox 100 11/05/21 20:45 Testing Laboratory Results 11/05/21 19:39 11/05/21 19:39 PT 10.3 Seconds (9.0-12.0) 11/05/21 19:39 INR 1.0 (0.9-1.1) 11/05/21 19:39 APTT 22.5 Seconds (21.0-31.0) 11/05/21 19:39 HCG, Quant 47421 mIU/ml 11/05/21 19:39 Blood Type O Positive 11/05/21 19:39 11/05/21 19:49 POC Glucose (other) 191 H 11/05/21 19:39 HCG, Quant [id number]
[2021-11-05] MEDS ORDERED: fentaNYL citrate 100 MCG/2 ML VIAL ONE ×3 (20:55→23:06)
[2021-11-05] MEDS ORDERED: MIDAZOLAM HCL 1 MG/ML 2ML VIAL ONE (20:55)
[2021-11-05] MEDS ORDERED: BUPIVACAINE 0.5 % 5 MG/1 ML MPF 30ML VIAL ONE (21:02)
[2021-11-05] MEDS ORDERED: EPINEPHrine INJ 1 MG/ML AMP ONE (21:02)
--- NOTE | 2021-11-05 21:29 | Emergency Department Note ---
History of Present Illness General Chief complaint: Syncope Stated complaint: VOMITING/SYNCOPE 7 WKS GESTATION Time Seen by Provider: 11/05/21 19:27 History of Present Illness Provider complaint: Abdominal pain vomiting syncope Onset (ago): day(s) 2 Location: abdomen Radiation: non-radiation Severity: severe Pain Consistency: + constant Current Pain Intensity: 10 Quality: + stabbing and + sharp Relieved By: + none Exacerbated By: + none Associated symptoms: + nausea/vomiting and + syncope; no chest pain, no cough or no headaches 41-year-old G3, P1 with history of 1 ectopic on the left that ruptured and needed to be evacuated at approximately 8 weeks presents emergency department with abdominal pain nausea vomiting. ports that the patient had 3 syncopal episodes today. Patient states she had vaginal bleeding last night. Home Medications Medication Instructions Recorded Confirmed Type acetaminophen 500 mg tablet 1,000 mg PO Q6H PRN 10/22/21 11/05/21 History (Tylenol Extra Strength) acetaminophen 160 mg/5 mL oral 0 mg PO QID PRN 11/05/21 11/05/21 History suspension (Children's Acetaminophen) ondansetron HCl 4 mg tablet 0 mg PO DIRECTED PRN 11/05/21 11/05/21 History prenat.vits,delmar,[id number] 1 tab PO DAILY 11/05/21 11/05/21 History Allergies Allergy/AdvReac Type Severity Reaction Status Date / Time shrimp Allergy Severe ANAPHYLAXIS Verified 11/05/21 20:23 red dye Allergy Unknown ANAPHYLAXIS Verified 11/05/21 20:23 Past Med/Surg History Medical History GERD (gastroesophageal reflux disease) Surgical History H/O wisdom tooth extraction S/P knee surgery S/P shoulder surgery S/P tonsillectomy and adenoidectomy Family History Family/Other Heart disease Uncle Grandmother Heart disease Breast cancer Grandfather Diabetes Father Diabetes Brother Thyroid disorder Social History Smoking Status: Unknown if ever smoked Second Hand Exposure: No; Hx Alcohol Use: No Hx Substance Use: No Preferred Language: Upper Sorbian Communication Ability: Effective Test Skein Winder Required: No Beliefs That Will Affect Care: None marital status: Current Living Situation: Spouse Feels Safe at Home: Yes Assistive Devices: None Review of Systems A total of 10 systems reviewed and were otherwise negative Physical Exam Vital Signs Vital Signs - 24 hr 11/05/21 19:15 11/05/21 20:06 11/05/21 20:10 Temperature 36.6 C Temperature Source Oral Pulse Rate 100 H 75 88 Pulse Rate [Right Finger] Pulse Rhythm Regular Regular Pulse Rhythm [Right Finger] Pulse Strength Normal Pulse Strength [Right Finger] Respiratory Rate 28 H 29 H 24 Respiratory Effort / Characteristics Respiratory Depth Respiratory Pattern Blood Pressure 72/53 L 101/58 L Blood Pressure [Right Arm] Blood Pressure Mean 59 72 Blood Pressure Mean [Right Arm] Blood Pressure Position Sitting Lying Blood Pressure Position [Right Arm] Pulse Oximetry 99 100 100 Oxygen Delivery Method Nasal Cannula Nasal Cannula Oxygen Flow Rate 2 4 4 Sepsis Recent Fever Within 48 Hours No Sepsis New/Unexplained Change in Mental Status No Sepsis Action Taken by Nursing Physician Notified Oxygen Flow Rate - Titration 4 Pulse Oximetry Post Tiitration 100 11/05/21 20:20 11/05/21 20:28 11/05/21 20:31 Temperature 36.6 C 36.6 C Temperature Source Oral Oral Pulse Rate 80 80 85 Pulse Rate [Right Finger] Pulse Rhythm Regular Regular Pulse Rhythm [Right Finger] Pulse Strength Normal Normal Pulse Strength [Right Finger] Respiratory Rate 22 23 18 Respiratory Effort / Characteristics Respiratory Depth Respiratory Pattern Blood Pressure 107/63 107/63 107/63 Blood Pressure [Right Arm] Blood Pressure Mean 77 77 77 Blood Pressure Mean [Right Arm] Blood Pressure Position Lying Lying Blood Pressure Position [Right Arm] Pulse Oximetry 100 100 94 Oxygen Delivery Method Oxygen Flow Rate Sepsis Recent Fever Within 48 Hours Sepsis New/Unexplained Change in Mental Status Sepsis Action Taken by Nursing Oxygen Flow Rate - Titration Pulse Oximetry Post Tiitration 11/05/21 20:44 11/05/21 20:45 Temperature 36.5 C Temperature Source Oral Pulse Rate 79 Pulse Rate [Right Finger] 77 Pulse Rhythm Regular Pulse Rhythm [Right Finger] Regular Pulse Strength Normal Pulse Strength [Right Finger] Normal Respiratory Rate 29 H 28 H Respiratory Effort / Characteristics Non-Labored Respiratory Depth Normal Respiratory Pattern Regular Blood Pressure 86/61 L Blood Pressure [Right Arm] 86/61 L Blood Pressure Mean 69 Blood Pressure Mean [Right Arm] 69 Blood Pressure Position Lying Blood Pressure Position [Right Arm] Lying Pulse Oximetry 100 100 Oxygen Delivery Method Room Air Oxygen Flow Rate 4 Sepsis Recent Fever Within 48 Hours Sepsis New/Unexplained Change in Mental Status Sepsis Action Taken by Nursing Oxygen Flow Rate - Titration Pulse Oximetry Post Tiitration Physical Exam GENERAL: Ill-appearing. HENT: Exam performed. -Head: Normocephalic and atraumatic. -Right Ear: External ear normal. No mastoid tenderness. -Left Ear: External ear normal. No mastoid tenderness. -Mouth/Throat: The oropharynx is clear and moist. No trismus in the jaw. No dental abscesses or uvula swelling. No oropharyngeal exudate or tonsillar abscesses. EYES: Conjunctivae and EOM are normal. Pupils are equal, round, and reactive to light. Right eye exhibits no discharge. Left eye exhibits no discharge. No scleral icterus. NECK: Normal range of motion. Neck supple. No JVD present. No spinous process tenderness present. No carotid bruit present. No rigidity. No tracheal deviation and normal range of motion present. No Brudzinski's sign and no Kernig's sign noted. CV: Normal rate, regular rhythm, normal heart sounds and intact distal pulses. There is no peripheral edema. Palpable radial pulses bue. PULM/CHEST: Effort normal and breath sounds normal. No respiratory distress. No stridor. She has no wheezes. She has no rales. -Chest Wall: She exhibits no tenderness. ABD: Distended. Diffuse pain on palpation. MUSC/SKEL: Normal range of motion. There is no peripheral edema, tenderness or deformity. LYMPH: No cervical adenopathy. NEURO: She is alert and oriented to person, place, and time. She has normal strength. No cranial nerve deficit or sensory deficit. Coordination and gait normal. GCS eye subscore is 4. GCS verbal subscore is 5. GCS motor subscore is 6. Cerebellar tests wnl. SKIN: Pale. Diaphoretic. Procedures FAST Exam FAST Exam 1: Fluid in Morison's pouch: Yes Study normal for this patient: No Images saved for further review: Yes Course Course 1926: The patient was evaluated in room A9. A complete history and physical exam was performed Cardiac monitoring: An order was placed for continuous cardiac monitoring. The monitor shows a rate of 100 with sinus rhythm Was ill-appearing. Bedside [id number] ultrasound was conducted and there was fluid in Morison's pouch. Patient was moved to resuscitation bay room A1. 2 large-bore IVs were placed and 2 L of IV fluids were started on the patient immediately. Packed red blood cells ordered for the patient also. landscape technician was called to do formal bedside ultrasound at the bedside in the resuscitation bay. ELEVATOR OPERATOR SERVICE was paged. 1936: Discussed case with [facility] ELEVATOR OPERATOR SERVICE Dr. Maloney who states he will be down to evaluate the patient. 2006: Blood pressure improved with IV fluids first unit packed red blood cells started. Dr. Maloney states he will take the patient to the OR. Administered Medications Sodium Chloride (Nss 1000ml) 2,000 mls @ 999 mls/hr IV .Q2H1M ONE Stop: 11/05/21 21:32 Last Admin: 11/05/21 19:30 Dose: 999 mls/hr Documented by: [id number] Discontinued Medications Fentanyl Citrate (Fentanyl Citrate 100 Mcg/2 Ml Vial) 25 mcg IV NOW ONE Stop: 11/05/21 19:34 Last Admin: 11/05/21 19:45 Dose: 25 mcg Documented by: [id number] Ondansetron HCl (Ondansetron Inj 2 Mg/Ml 2 Ml Vial) 4 mg IV NOW STA Stop: 11/05/21 19:34 Last Admin: 11/05/21 19:46 Dose: 4 mg Documented by: [id number] Ondansetron HCl (Ondansetron Inj 2 Mg/Ml 2 Ml Vial) 4 mg IV NOW STA Stop: 11/05/21 20:31 Last Admin: 11/05/21 20:34 Dose: 4 mg Documented by: [id number] Critical Care Time Critical Care Time: Yes Total Critical Care Time: 41 I have personally spent greater than 41 minutes of critical care time in the direct management of this patient. This includes bedside care, interpretation of diagnostic studies, and testing, discussion with consultants, patient, and family members, and other required patient management activities. This 41 minutes is in excess of all separately billable procedures. Medical Decision Making Laboratory Data Result diagrams: 11/05/21 19:39 11/05/21 19:39 Lab Results 11/05/21 11/05/21 11/05/21 Range/Units 19:39 19:39 19:39 WBC 20.83 H (4.8-10.8) K/uL RBC 2.97 L (4.2-5.4) M/uL Hgb 9.3 L (12.0-16.0) g/dL POC Hgb (12.0-16.0) g/dl Hct 28.6 L (37-47) % POC Hct (37-47) % MCV 96.3 (80-100) fL MCH 31.3 (25-34) pg MCHC 32.5 (32-36) g/dL RDW Std Deviation 44.2 (36.4-46.3) fL RDW Coeff of Olegario 12.6 (11.5-14.5) % Plt Count 273 (130-400) K/uL MPV 9.8 (7.4-10.4) fL Immature Gran % (Auto) 0.6 % Neut % (Auto) 91.2 % Lymph % (Auto) 4.4 % [place] % (Auto) 3.8 % Eos % (Auto) 0.0 % Baso % (Auto) 0.0 % Neut # (Auto) 18.99 H (1.4-6.5) K/uL Lymph # (Auto) 0.92 L (1.2-3.4) K/uL [place] # (Auto) 0.80 H (0.11-0.59) K/uL Eos # (Auto) 0.00 (0-0.5) K/uL Baso # (Auto) 0.00 (0-0.2) K/uL Immature Gran # (Auto) 0.12 H (0.00-0.02) K/uL PT (9.0-12.0) Seconds INR (0.9-1.1) APTT (21.0-31.0) Seconds PTT Ratio POC Sodium (135-144) mmol/L Sodium 139 (136-145) mmol/L POC Potassium (3.3-5.0) mmol/L Potassium 4.4 (3.5-5.1) mmol/L POC Chloride (101-112) mmol/L Chloride 106 (98-107) mmol/L Carbon Dioxide 19 L (21-32) mmol/L POC Total CO2 (24-31) mmol/L Anion Gap 14 H (3-11) POC Anion Gap (16-25) mmol/L POC BUN (7-18) mg/dl BUN 32 H (6-23) mg/dl Creatinine 1.06 (0.6-1.2) mg/dl POC Creatinine (0.6-1.3) mg/dl Est Cr Clr Drug Dosing 80.2 ml/min Est GFR ( Amer) 75.5 ml/min Est GFR (Non-Af Amer) 65.2 ml/min BUN/Creatinine Ratio 30.2 H (10-20) Glucose 187 H (70-99(Fasting)) mg/dl POC Glucose (other) (70-99) mg/dl Calcium 8.4 L (8.5-10.1) mg/dl POC Ioniz Calcium Halie (1.12-1.32) mmol/l Total Bilirubin 0.4 (0.2-1.0) mg/dl Direct Bilirubin 0.0 (0-0.2) mg/dl AST 10 L (13-39) U/L ALT 12 (7-52) U/L Alkaline Phosphatase 47 (34-104) U/L Total Protein 6.3 (6.0-8.3) gm/dl Albumin 3.8 (3.4-5.0) gm/dl Lipase 12 (11-82) U/L HCG, Quant mIU/ml SARS-CoV-2, RNA, NAAT (NEGATIVE) Blood Type O Positive Crossmatch See Detail 11/05/21 11/05/21 11/05/21 Range/Units 19:39 19:39 19:49 WBC (4.8-10.8) K/uL RBC (4.2-5.4) M/uL Hgb (12.0-16.0) g/dL POC Hgb 9.2 L (12.0-16.0) g/dl Hct (37-47) % POC Hct 27 L (37-47) % MCV (80-100) fL MCH (25-34) pg MCHC (32-36) g/dL RDW Std Deviation (36.4-46.3) fL RDW Coeff of Olegario (11.5-14.5) % Plt Count (130-400) K/uL MPV (7.4-10.4) fL Immature Gran % (Auto) % Neut % (Auto) % Lymph % (Auto) % [place] % (Auto) % Eos % (Auto) % Baso % (Auto) % Neut # (Auto) (1.4-6.5) K/uL Lymph # (Auto) (1.2-3.4) K/uL [place] # (Auto) (0.11-0.59) K/uL Eos # (Auto) (0-0.5) K/uL Baso # (Auto) (0-0.2) K/uL Immature Gran # (Auto) (0.00-0.02) K/uL PT 10.3 (9.0-12.0) Seconds INR 1.0 (0.9-1.1) APTT 22.5 (21.0-31.0) Seconds PTT Ratio 0.8 POC Sodium 139 (135-144) mmol/L Sodium (136-145) mmol/L POC Potassium 4.4 (3.3-5.0) mmol/L Potassium (3.5-5.1) mmol/L POC Chloride 107 (101-112) mmol/L Chloride (98-107) mmol/L Carbon Dioxide (21-32) mmol/L POC Total CO2 19 L (24-31) mmol/L Anion Gap (3-11) POC Anion Gap 19.0 (16-25) mmol/L POC BUN 28 H (7-18) mg/dl BUN (6-23) mg/dl Creatinine (0.6-1.2) mg/dl POC Creatinine 0.9 (0.6-1.3) mg/dl Est Cr Clr Drug Dosing ml/min Est GFR ( Amer) ml/min Est GFR (Non-Af Amer) ml/min BUN/Creatinine Ratio (10-20) Glucose (70-99(Fasting)) mg/dl POC Glucose (other) 191 H (70-99) mg/dl Calcium (8.5-10.1) mg/dl POC Ioniz Calcium Halie 1.21 (1.12-1.32) mmol/l Total Bilirubin (0.2-1.0) mg/dl Direct Bilirubin (0-0.2) mg/dl AST (13-39) U/L ALT (7-52) U/L Alkaline Phosphatase (34-104) U/L Total Protein (6.0-8.3) gm/dl Albumin (3.4-5.0) gm/dl Lipase (11-82) U/L HCG, Quant 73432 mIU/ml SARS-CoV-2, RNA, NAAT (NEGATIVE) Blood Type Crossmatch 11/05/21 Range/Units 19:52 WBC (4.8-10.8) K/uL RBC (4.2-5.4) M/uL Hgb (12.0-16.0) g/dL POC Hgb (12.0-16.0) g/dl Hct (37-47) % POC Hct (37-47) % MCV (80-100) fL MCH (25-34) pg MCHC (32-36) g/dL RDW Std Deviation (36.4-46.3) fL RDW Coeff of Olegario (11.5-14.5) % Plt Count (130-400) K/uL MPV (7.4-10.4) fL Immature Gran % (Auto) % Neut % (Auto) % Lymph % (Auto) % [place] % (Auto) % Eos % (Auto) % Baso % (Auto) % Neut # (Auto) (1.4-6.5) K/uL Lymph # (Auto) (1.2-3.4) K/uL [place] # (Auto) (0.11-0.59) K/uL Eos # (Auto) (0-0.5) K/uL Baso # (Auto) (0-0.2) K/uL Immature Gran # (Auto) (0.00-0.02) K/uL PT (9.0-12.0) Seconds INR (0.9-1.1) APTT (21.0-31.0) Seconds PTT Ratio POC Sodium (135-144) mmol/L Sodium (136-145) mmol/L POC Potassium (3.3-5.0) mmol/L Potassium (3.5-5.1) mmol/L POC Chloride (101-112) mmol/L Chloride (98-107) mmol/L Carbon Dioxide (21-32) mmol/L POC Total CO2 (24-31) mmol/L Anion Gap (3-11) POC Anion Gap (16-25) mmol/L POC BUN (7-18) mg/dl BUN (6-23) mg/dl Creatinine (0.6-1.2) mg/dl POC Creatinine (0.6-1.3) mg/dl Est Cr Clr Drug Dosing ml/min Est GFR ( Amer) ml/min Est GFR (Non-Af Amer) ml/min BUN/Creatinine Ratio (10-20) Glucose (70-99(Fasting)) mg/dl POC Glucose (other) (70-99) mg/dl Calcium (8.5-10.1) mg/dl POC Ioniz Calcium Halie (1.12-1.32) mmol/l Total Bilirubin (0.2-1.0) mg/dl Direct Bilirubin (0-0.2) mg/dl AST (13-39) U/L ALT (7-52) U/L Alkaline Phosphatase (34-104) U/L Total Protein (6.0-8.3) gm/dl Albumin (3.4-5.0) gm/dl Lipase (11-82) U/L HCG, Quant mIU/ml SARS-CoV-2, RNA, NAAT NEGATIVE (NEGATIVE) Blood Type Crossmatch Imaging Data Radiologist's Impression: Obstetrics Ultrasound 11/05/21 19:36 ULTRASOUND OF THE PELVIS CLINICAL HISTORY: Pelvic pain. Hypotension. .. COMPARISON STUDY: Pelvic ultrasound dated 10/22/2021. TECHNIQUE: Real-time, grayscale, and color flow sonography of the pelvis is performed transabdominally. Images are reviewed in the transverse and lo ngitudinal planes. FINDINGS: Uterus: The uterus is normal in size and echotexture, measuring 10.0 x 5.1 x 5.9 cm. Endometrium: The endometrium is thickened and heterogeneous measuring up to 1.9 cm. No intrauterine gestation is identified. Ovaries: The ovaries were not visualized due to hemorrhage in the pelvis. Pelvis: Complex free fluid in the pelvis likely represents hemorrhage. Free fluid is also seen below the liver. There is a 2.5 cm complex structure containing a yolk sac and pole anterior to the uterus in the right adnexa. This is consistent with an ectopic . The crown-rump length measures 4.37 cm, corresponding to an estimated age of 6 weeks 1 day. IMPRESSION: 1. An ectopic is identified anterior to the uterus slightly to the right of midline. 2. Hemoperitoneum throughout the pelvis indicates rupturing ectopic. Surgical assessment is advised. 3. The ovaries were not visualized due to surrounding hemoperitoneum. 4. The endometrium is thickened and heterogeneous measuring up to 1.9 cm. No intrauterine gestation is seen. ACT 112: Negative or not required by law. Electronically signed by: Wilfrid Cruz M.D. 11/05/2021 8:32 PM MDM Narrative 192: The patient was evaluated in room A9. A complete history and physical exam was performed Cardiac monitoring: An order was placed for continuous cardiac monitoring. The monitor shows a rate of 100 with sinus rhythm Was ill-appearing. Bedside [id number] ultrasound was conducted and there was fluid in Morison's pouch. Patient was moved to resuscitation bay room A1. 2 large-bore IVs were placed and 2 L of IV fluids were started on the patient immediately. Packed red blood cells ordered for the patient also. Ultrasound t ech was called to do formal bedside ultrasound at the bedside in the resuscitation bay. ELEVATOR OPERATOR SERVICE was paged. 1936: Discussed case with [facility] ELEVATOR OPERATOR SERVICE Dr. Maloney who states he will be down to evaluate the patient. 2006: Blood pressure improved with IV fluids first unit packed red blood cells started. Dr. Maloney states he will take the patient to the OR. Impression & Plan Ruptured ectopic , Shock after ectopic Discharge Plan Visit Data Chief Complaint: Syncope Stated Complaint: VOMITING/SYNCOPE 7 WKS GESTATION Discharge Problem: Ruptured ectopic , Shock after ectopic Patient Disposition: Admitted As Inpatient Forms Stand Alone Forms: [facility] Prescriptions Prescriptions: No Action acetaminophen [Children's Acetaminophen] 160 mg/5 mL Suspension 0 mg PO QID PRN (Reason: Pain) RF: 0 ondansetron HCl [Zofran] 4 mg Tablet 0 mg PO DIRECTED PRN (Reason: Nausea) RF: 0 Vitamin Tablet 1 tab PO DAILY RF: 0 acetaminophen [Tylenol Extra Strength] 500 mg Tablet 1,000 mg PO Q6H PRN (Reason: Pain) RF: 0 Referrals Referrals: PCP,NO [Primary Care Provider] -
[2021-11-05] MEDS ORDERED: PROMETHAZINE HCL 6.25 MG in SODIUM CHLORIDE 0.9% 50 ML IV PRN (22:52)
[2021-11-05] MEDS ORDERED: ATROPINE SULFATE 0.1 MG/ML 10ML SYR IV PRN (22:52)
[2021-11-05] MEDS ORDERED: ONDANSETRON INJ 2 MG/ML 2 ML VIAL IV PRN ×2 (22:52→23:35)
[2021-11-05] MEDS ORDERED: HYDROmorphone INJ 1 MG/ML SYRINGE IV PRN (22:52)
[2021-11-05] MEDS ORDERED: DEXAMETHASONE SOD INJ 4 MG/ML VIAL ONE (22:54)
[2021-11-05] MEDS ORDERED: METOCLOPRAMIDE HCL INJ 5 MG/ML 2 ML VIAL ONE (22:54)
[2021-11-05] MEDS ORDERED: ETOMIDATE 2 MG/ML 20 ML VIAL IV ONE (22:54)
[2021-11-05] MEDS ORDERED: SUCCINYLCHOLINE CHLORIDE 20 MG/ML 10 ML VIAL IV ONE (22:54)
[2021-11-05] MEDS ORDERED: LIDOCAINE 2% 2 ML VIAL/AMP(20MG/ML) INFIL ONE (22:54)
[2021-11-05] MEDS ORDERED: GLYCOPYRROLATE 0.2 MG/ML VIAL ONE (22:54)
[2021-11-05] MEDS ORDERED: NEOSTIGMINE METHYLSULFATE 1 MG/ML 10ML VIAL ONE (22:54)
[2021-11-05] MEDS ORDERED: ROCURONIUM BROMIDE 10 MG/ML 5 ML VIAL IV ONE (22:54)
[2021-11-05] MEDS ORDERED: PROPOFOL IV EMULSION 10 MG/ML 20 ML VIAL IV ONE (22:54)
--- NOTE | 2021-11-05 23:34 | Post Operative Brief Note ---
Immediate Post Op Note v1 Date of Surgery November 05, 2021 Pre & Post Diagnosis Operation Date: 11/05/21 21:30 Pre-Op Diagnosis: Rutured Ectopic Post-Op Diagnosis: Rutured Ectopic I identified the patient and participated in the time-out.: Yes Procedure Operation Date: 11/05/21 21:30 Actual Procedures p Laparoscopic Ruputured Ectopic, Evacuation of Clots and Removal Right Fallopian Tube(Right) - Wilver Maloney MD Surgeon Wilver Maloney MD [employer] [facility] Estimated Blood Loss 2,500 Findings Consistent with Post-Op Diagnosis Drains Acuna Catheter (16 fr acuna inserted by surgeon and removed at end of case. Acuna drained approximately 600ml)
[2021-11-06 00:22] LABS: Hematocrit (blood only) 28.4 % (37-47); Hemoglobin 9.4 g/dL (12.0-16.0); Mean Corpuscular Hemoglobin 30.4 pg (25-34); Mean Corpuscular Hgb Conc 33.1 g/dL (32-36); Mean Corpuscular Volume 91.9 fL (80-100); Mean Platelet Volume 10.3 fL (7.4-10.4); Platelet Count 180 K/uL (130-400); RDW Coefficient of Variation 13.2 % (11.5-14.5); RDW Standard Deviation 44.3 fL (36.4-46.3); Red Blood Count 3.09 M/uL (4.2-5.4)
[2021-11-06] MEDS ORDERED: IBUPROFEN 600 MG TAB PO SCH (01:15)
[2021-11-06] MEDS: IBUPROFEN 600 MG TAB PO PRN ×4 (02:11→20:45)
[2021-11-06] MEDS ORDERED: Nursing to Pharmacy Communication SCH (02:45)
--- NOTE | 2021-11-06 03:42 | Operative Report (OR) ---
INDICATION FOR SURGERY: This is a 41-year-old G3, P1 who presented to the Emergency Room after being unresponsive at home. She was diagnosed with ruptured ectopic with bleeding. Vitals norm al and stable. In the ER, she received 2 units of blood. The patient was immediately taken to the o perating room and underwent surgery. PREOPERATIVE DIAGNOSES: 1. at 7 weeks ____. 2. Ruptured ectopic . POSTOPERATIVE DIAGNOSES: 1. at 7 weeks ____. 2. Ruptured ectopic . PROCEDURE: Operative laparoscopy, evacuation of hemoperitoneum, right salpingectomy. SURGEON: Wilver Maloney MD STEELSCOPE OPERATOR: MARIAN Garnett. ANESTHESIA: General. Dr. Ramon is attending. DRAINS: None. ESTIMATED BLOOD LOSS: 2500 mL. INTRAVENOUS FLUIDS: 2000 mL. URINE OUTPUT: 600 mL clear urine at the end of the procedure. SPECIMEN: Right fallopian tube and ectopic . INTRAOPERATIVE COMPLICATIONS: None. CONDITION: Stable to recovery room. DISPOSITION: Postanesthesia care unit. ATTESTATION: I performed the entire procedure. FINDINGS: There was minimal amount of blood in the vagina prior to surgery. The laparoscopic abdomi nal findings showed a couple of liters of blood in the abdomen. The uterus is about a 10-week size. The left fallopian tube had been transected from previous surgery. The right fallopian tube appeare d ruptured. Rest of the abdominopelvic exam is unremarkable. DESCRIPTION OF PROCEDURE: The patient was taken to the operating room where she was prepped and drap ed in normal sterile fashion in dorsal lithotomy position. Timeout was called. A weighted speculum was placed in the vagina. Aragon retractor was used to retract the vagina. Single tooth tenaculum was used to grab the cervix. [employer] uterine manipulator was placed in the uterus to help manipulate the uterus during laparoscopy. Rice catheter was placed in the bladder. Attention was paid to the abdominal part of the procedure where a supraumbilical incision was made wi th a scalpel and carried down to the fascia. The fascia was grabbed with the Mazin. A Veress needl e attached to a water-filled syringe was introduced into the abdomen at a 45-degree angle while tenti ng up the abdomen. A water drop and suction test was performed. Abdomen was insufflated with 3 L of CO2 gas. A 5 mm trocar attached to a scope was introduced into the abdomen at a 45-degree angle christian whitehead tenting up the abdomen. This was done under direct visualization, a nonbladed trocar was used. O nce inside the abdomen, the findings were as follows: There were a couple liters of hemoperitoneum w ith clots in the abdomen. Uterus was about 10 weeks' size. A section of the left tube had been cancino sected from a previous ectopic . On the right, the fallopian tube was ruptured. That was t he site of the ectopic. The rest of the bowel, omentum, pelvis appeared grossly normal. There was, as stated above, ____ amount of fluid in the pelvis seen ____ to be underneath the liver. Two more a ccessory ports were placed on the left side, one was at 11 mm and at 5 mm, these were nonbladed troca rs and were all placed under direct visualization. Copious amount of irrigation was used to irrigate the abdomen and suctioned. Grasper was passed through the lower port and the right fallopian tube g rabbed and positioned anteromedially. This was transected. The transected tube included the ectopic . This was sent to pathology for pathological analysis. More irrigation was used to irrigate the abdomen and as much clot and fluid removed as possible. The re was good hemostasis. A Mamadou-Cely was used to close the 10 mm port under direct visualizatio n. All ports were removed and once again hemostasis was established. The 5 mm ports were all closed wit h Dermabond. Attention was paid to the vaginal part of the procedure where the single tooth tenaculum and uterine manipulator was removed. There was good hemostasis. All instruments were removed from the abdomen and the vagina and accounted for x2. The patient was s ent to the recovery in stable condition. Job ID: [id number]
--- NOTE | 2021-11-06 06:34 | Obstetrical Progress Note ---
Date of Service November 06, 2021 Assessment & Plan (1) Status post laparoscopy: s/p laparoscopy for raptured ectopic pt doing well d/c home with instructions following breakfast Subjective Review of Systems All systems reviewed & are unremarkable except as noted in HPI & below Physical Exam Constitutional WD/WN, vitals as above Eyes PERRL, conjunctivae normal, anicteric sclerae ENMT external ear and nose normal, oropharynx normal Neck trachea midline, no thyromegaly Respiratory normal respiratory effort, lungs clear to auscultation Cardiovascular RRR, no murmur, no edema Chest (Breasts) normal inspection/palpation of breasts Gastrointestinal (Abdomen) normal bowel sounds, soft, nontender, no hepatosplenomegaly Musculoskeletal no cyanosis or clubbing, extremities motor strength 5/5 Skin + incision (Incision clean,dry and intact) Neurologic patellar DTR's 2+ bilat, sensation intact Psychiatric A+Ox3, euthymic affect Genitourinary no vaginal lesions, no adnexal mass Lymphatic no cervical or axillary lymphadenopathy Results & Data ([facility]) Vital Signs (Past 12 Hours) Vital Signs Temp Pulse Pulse Pulse Resp BP BP 11/06/21 04:40 37.0 C 96 H 18 96/59 L 11/06/21 01:50 36.8 C 107 H 18 103/69 11/06/21 01:22 37.0 C 108 H 18 95/61 L 11/06/21 00:47 36.6 C 99 H 16 98/64 L 11/06/21 00:15 93 H 23 111/69 11/06/21 00:10 98 H 25 H 123/73 11/06/21 00:05 94 H 26 H 119/76 11/06/21 00:00 36.7 C 103 H 26 H 11/05/21 23:56 97 H 24 117/66 11/05/21 23:52 103 H 22 126/72 11/05/21 23:50 96 H 24 11/05/21 23:46 98 H 24 134/69 11/05/21 23:41 103 H 26 H 120/80 11/05/21 23:40 108 H 24 11/05/21 23:35 91 H 21 116/72 11/05/21 23:30 95 H 19 122/78 11/05/21 23:25 36.5 C 16 11/05/21 21:26 36.5 C 75 28 H 117/65 11/05/21 20:50 77 34 H 11/05/21 20:45 77 28 H 86/61 L 11/05/21 20:44 36.5 C 76 31 H 86/61 L 11/05/21 20:31 36.6 C 85 18 107/63 11/05/21 20:28 80 23 107/63 11/05/21 20:20 36.6 C 80 22 107/63 11/05/21 20:10 36.6 C 88 25 H 101/58 L 11/05/21 20:06 75 29 H 11/05/21 20:00 95/59 L 11/05/21 19:40 99 H 27 H 11/05/21 19:15 100 H 28 H 72/53 L Pulse Ox 11/06/21 04:40 98 11/06/21 01:50 100 11/06/21 01:22 100 11/06/21 00:47 98 11/06/21 00:15 99 11/06/21 00:10 98 11/06/21 00:05 99 11/06/21 00:00 99 11/05/21 23:56 98 11/05/21 23:52 98 11/05/21 23:50 98 11/05/21 23:46 98 11/05/21 23:41 99 11/05/21 23:40 97 11/05/21 23:35 98 11/05/21 23:30 98 11/05/21 23:25 11/05/21 21:26 98 11/05/21 20:50 100 11/05/21 20:45 100 11/05/21 20:44 93 11/05/21 20:31 94 11/05/21 20:28 100 11/05/21 20:20 100 11/05/21 20:10 100 11/05/21 20:06 100 11/05/21 20:00 11/05/21 19:40 100 11/05/21 19:15 99
[2021-11-06] MEDS: ACETAMINOPHEN 325 MG TAB PO PRN ×3 (06:42→20:46)
[2021-11-06 06:48] LABS: Basophils # (auto) 0.01 K/uL (0-0.2); Basophils % (auto) 0.1 %; Hematocrit (blood only) 22.1 % (37-47); Hemoglobin 7.5 g/dL (12.0-16.0); Immature Granulocytes # (auto) 0.08 K/uL (0.00-0.02); Immature Granulocytes % (auto) 0.6 %; Lymphocytes # (auto) 1.22 K/uL (1.2-3.4); Lymphocytes % (auto) 8.6 %; Mean Corpuscular Hemoglobin 30.9 pg (25-34); Mean Corpuscular Hgb Conc 33.9 g/dL (32-36); Mean Corpuscular Volume 90.9 fL (80-100); Mean Platelet Volume 10.1 fL (7.4-10.4); Monocytes # (auto) 0.97 K/uL (0.11-0.59); Monocytes % (auto) 6.8 %; Neutrophils % (auto) 83.9 %; Platelet Count 166 K/uL (130-400); RDW Coefficient of Variation 13.6 % (11.5-14.5); RDW Standard Deviation 44.8 fL (36.4-46.3); Red Blood Count 2.43 M/uL (4.2-5.4); White Blood Count 14.18 K/uL (4.8-10.8)
[2021-11-06 07:23] LABS: RBC Morphology Unremarkable
--- NOTE | 2021-11-06 08:31 | Discharge Summary (DS) ---
DATE OF ADMISSION: 11/05/2021. DATE OF DISCHARGE: 11/06/2021. HISTORY OF PRESENT ILLNESS: This is a 41-year-old G3, P1 at 7 weeks' gestation, who presented to the Emergency Room with ruptured ectopic. She was hemodynamically unstable. She was stabilized in the ER trauma bay, went on to have surgery. Surgery involved operative laparoscopy with right salpingect gurvinder and removal of the ectopic, as well as removal of hemoperitoneum. The patient had about 2.5 L of blood in the abdomen. Rest of the surgery information is in the surgical note. The patient did wel l post-recovery, received 2 units of packed RBC and this morning is doing well and being discharged h ome in stable condition. PAST MEDICAL HISTORY: No history of diabetes, hypertension, or asthma. PAST SURGICAL HISTORY: The patient has had ectopic on the contralateral tube, which in this case, is the left. SOCIAL HISTORY: The patient denies tobacco, drug or alcohol use. FAMILY HISTORY: Noncontributory. ALLERGIES: The patient has no allergy to medications. REVIEW OF SYSTEMS: Negative. PHYSICAL EXAMINATION: VITAL SIGNS: This morning, blood pressure is 96/59. HEART: S1 and S2, regular rhythm and rate. LUNGS: Clear to auscultation bilaterally. ABDOMEN: Nontender, nondistended. Incision sites are clean, dry, and intact. EXTREMITIES: No cyanosis, clubbing or edema. LABORATORY DATA: Hemoglobin this morning is 7.5, hematocrit 22.1. CONDITION ON DISCHARGE: Stable. OPERATIONS: Operative laparoscopy, right salpingectomy and evacuation of hemoperitoneum. DISCHARGE DIAGNOSIS: Postoperative after the above procedures. PLAN ON DISCHARGE: The patient is discharged home with instructions regarding activity, diet, and [facility] appointment. Job ID: [id number]
[2021-11-06] MEDS ORDERED: SODIUM CHLORIDE 0.9% 250 ML IV PRN (09:46)
[2021-11-06 10:46] LABS: Hematocrit (blood only) 20.4 % (37-47); Hemoglobin 6.9 g/dL (12.0-16.0)
[2021-11-06 17:32] LABS: Hematocrit (blood only) 21.3 % (37-47); Hemoglobin 7.1 g/dL (12.0-16.0)
[2021-11-06] MEDS ORDERED: COUGH DROP (SUGAR FREE) LOZ 24 LOZ/1 BOX BUCCAL PRN (19:53)
[2021-11-07] MEDS: IBUPROFEN 600 MG TAB PO PRN ×6 (00:34→21:08)
[2021-11-07 06:39] LABS: Hemoglobin 6.3 g/dL (12.0-16.0); Mean Corpuscular Hemoglobin 30.4 pg (25-34); Mean Corpuscular Hgb Conc 33.2 g/dL (32-36); Mean Corpuscular Volume 91.8 fL (80-100); Mean Platelet Volume 9.8 fL (7.4-10.4); Platelet Count 131 K/uL (130-400); RDW Coefficient of Variation 14.3 % (11.5-14.5); RDW Standard Deviation 47.4 fL (36.4-46.3); Red Blood Count 2.07 M/uL (4.2-5.4); White Blood Count 9.18 K/uL (4.8-10.8)
[2021-11-07] MEDS ORDERED: SODIUM CHLORIDE 0.9% 250 ML IV PRN (09:50)
[2021-11-07] MEDS ORDERED: diphenhydrAMINE Capsule 25 MG CAP PO ONE (09:52)
[2021-11-07] MEDS ORDERED: ACETAMINOPHEN 325 MG TAB PO ONE (10:00)
--- NOTE | 2021-11-07 10:02 | Obstetrical Progress Note ---
Date of Service November 07, 2021 Assessment & Plan (1) Status post laparoscopy: Pt doing well Reports persistant headache Feels better that on admission 'tolerating Po food and meds H/H was 6.0 Plan pelvic sono transfuse 1 unit Med consult for headache to r/o concussion after fall Subjective Review of Systems All systems reviewed & are unremarkable except as noted in HPI & below Physical Exam Constitutional WD/WN, vitals as above Eyes PERRL, conjunctivae normal, anicteric sclerae ENMT external ear and nose normal, oropharynx normal Neck trachea midline, no thyromegaly Respiratory normal respiratory effort, lungs clear to auscultation Cardiovascular RRR, no murmur, no edema Chest (Breasts) normal inspection/palpation of breasts Gastrointestinal (Abdomen) normal bowel sounds, soft, nontender, no hepatosplenomegaly Musculoskeletal no cyanosis or clubbing, extremities motor strength 5/5 Skin + incision (Incision clean,dry and intact) Neurologic patellar DTR's 2+ bilat, sensation intact Psychiatric A+Ox3, euthymic affect Genitourinary no vaginal lesions, no adnexal mass Lymphatic no cervical or axillary lymphadenopathy Results & Data ([facility]) Vital Signs (Past 12 Hours) Vital Signs Temp Pulse Pulse Resp BP Pulse Ox 11/07/21 07:51 37.2 C 87 18 111/66 98 11/07/21 04:35 36.7 C 91 H 16 102/62 97 11/06/21 23:00 37.5 C 105 H 18 105/54 L 97
--- NOTE | 2021-11-07 10:56 | Ultrasound Report ---
ULTRASOUND OF THE PELVIS CLINICAL HISTORY: Hemoperitoneum status post laparoscopy for ectopic . COMPARISON STUDY: Pelvic ultrasound dated 11/05/2021. TECHNIQUE: Real-time, grayscale, and color flow sonography of the pelvis is performed transabdominall y. Images are reviewed in the transverse and longitudinal planes. FINDINGS: Uterus: The uterus is mildly enlarged and heterogeneous, measuring 11.1 x 5.7 x 6.6 cm. Endometrium: The endometrium is mildly thickened, measuring up to 1.5 cm. There is a small amount of complex fluid within the endometrial canal. Ovaries: The ovaries are normal in size and morphology. The right ovary measures 2.1 x 1.8 x 2.5 cm a nd the left ovary measures 2.4 x 1.5 x 1.7 cm. A 1.5 cm complex follicle is noted in the right ovary. Normal Doppler waveforms are shown within both ovaries. Pelvis: There is a small volume of complex free fluid in the right adnexa and adjacent to the fundus. No fluid is seen in the upper abdomen. No concerning adnexal lesion is seen. IMPRESSION: 1. There is a small volume of complex free fluid in the pelvis, likely representing residual hemoperi toneum. 2. No large volume hemoperitoneum is seen. 3. The uterus is mildly enlarged and heterogeneous with a small amount of complex fluid within the en dometrial canal. 4. The ovaries are normal as visualized. ACT 112: Negative or not required by law. Electronically signed by: Wilfrid Cruz M.D. 11/07/2021 10:55 AM
--- NOTE | 2021-11-07 11:21 | Hospitalist Consultation ---
Date of Consultation November 07, 2021 Assessment & Plan (1) Ruptured ectopic : (2) Status post laparoscopy: This is a 41yo F who is POD #2 s/p laparoscopic abdominal surgery for ruptured ectopic with symptomatic anemia and headache. Initial ultrasound showing ruptured right ectopic with hemoperitoneum POD#2 s/p laparoscopic abdominal surgery with clot removal and removal of right fallopian tube Has received 3u prbcs since rupture with 4th unit in process Repeat pelvis ultrasound 11/07 with a small volume of complex free fluid in the pelvis, likely representing residual hemoperitoneum. No large volume hemoperitoneum is seen Care per obgyn (3) Symptomatic anemia: In setting of ruptured ectopic, s/p laparoscopic abdominal surgery Has received 3u prbcs since rupture with 4th unit in process Hgb of 6.3 this AM, repeat CBC this afternoon after transfusion complete VSS, encourage PO fluid intake, fall precautions Peripheral smear to rule out hemolysis (4) Headache: In setting of fall at home 2/2 syncopal episodes, acute blood loss anemia Likely concussive from fall 2 days prior, no focal deficits Obtaining CT head w/o contrast now Pain improved with ice to R side of head and neck, PRN pain medication DVT Ppx: SCDs Dispo: Per primary service Patient seen in collaboration with Dr. North. Please see addendum. Thank you for this consultation. We will follow the patient with you during their hospital stay. You can reach a member of the [facility] Hospitalist Team 01/12 via [place] [employer]. Supervising Physician Co-Signing Physician Notes Date of Service: November 07, 2021 41-year-old woman who presented 2 days ago with syncopal episodes and was found to have ruptured ectopic status post laparoscopic evacuation of clots and removal of right fallopian tube. Patient reported 2 episodes of syncope on the day of presentation. These were witnessed and he does not recall hitting her head. However, she stated that her reported that it is possible she might have hit her head based on how she was laying when he found her. She reports headache since presentation mostly in the back of the head, described as pulsating, moderate. Patient currently reports some nausea. Denies dizziness. On exam, General: Well nourished, well hydrated, no acute distress, some tenderness on palpation of right parieto-occipital area but no discernible swelling or laceration Eyes: PERRL, conjunctivae normal, not +pallor, anicteric sclerae, EOM intact bilaterally ENMT: External ear and nose normal, oropharynx normal Respiratory: Normal respiratory effort, no respiratory distress, lungs clear to auscultation, no crackles and no wheezes Cardiovascular: RRR S1 S2 Gastrointestinal (Abdomen): Abdomen is not distended, soft, non-tender to palpation, no guarding, no palpable hepatosplenomegaly, normal bowel sounds Musculoskeletal: No cyanosis or clubbing, No pedal edema Neurologic: Alert and oriented x 3, No focal weakness, sensation grossly intact Psychiatric: Alert and oriented x 3, euthymic affect, no depressed affect Lab notable for hemoglobin of 6.3 Acute blood loss anemia Syncopal episodes Ruptured ectopic status post laparoscopic evacuation of clots and removal of right fallopian tube. With syncopal episode and possible head trauma, concussion is possible. Get CT head w/o contrast Pain management Per RN, Patient got 2 PRBC prior to OR on day of presentation and got 1 PRBC post op yesterday Repeat USS pelvis this AM noted small vol complex free fluid likely residual hemoperitoneum Getting one PRBC this AM. Monitor post transfusion PRBC If Hb continues to drop, assess for other causes such as hemolytic anemia Hospitalist team will continue to follow Agree with other plans as detailed by Isis Ramos PA-C History of Present Illness Reason for Consultation: headache, anemia Attending Physician: Wilver Maloney MD History of Present Illness This is a 41yo F who is POD #2 s/p laparoscopic abdominal surgery for ruptured ectopic with symptomatic anemia and headache. Patient took home test on 10/22/21. Over past few days, patient has felt more lightheaded and weak with lower back and abdominal pain. Also endorsing nausea. Had 2 syncopal episodes at home on Thursday at home when ambulating. Believe she hit h er head but is unsure. found her on the floor and was brought to ED for further evaluation. Found to have ruptured ectopic with hemoperitoneum requiring laparoscopic surgery on 11/05/[address] Maloney. Received 2u prbcs pre- operatively and 1 additional unit yesterday post-operatively. Since surgery, patient has felt better but intermittent headache with a pulsing pain and lightheadedness with movement. Head is sore to touch on right side. No blood staining on pillows, no lesions. No neck pain or dizziness. Still feeling nauseated. No fever, chills, chest pain, SOB, dysuria, diarrhea or constipation. Allergies Allergy/AdvReac Type Severity Reaction Status Date / Time shrimp Allergy Severe ANAPHYLAXIS Verified 11/05/21 20:23 red dye Allergy Unknown ANAPHYLAXIS Verified 11/05/21 20:23 Home Medications Medication Instructions Recorded Confirmed Type acetaminophen 500 mg tablet 1,000 mg PO Q6H PRN 10/22/21 11/05/21 History (Tylenol Extra Strength) acetaminophen 160 mg/5 mL oral 0 mg PO QID PRN 11/05/21 11/05/21 History suspension (Children's Acetaminophen) ondansetron HCl 4 mg tablet 0 mg PO DIRECTED PRN 11/05/21 11/05/21 History prenat.vits,delmar,[id number] 1 tab PO DAILY 11/05/21 11/05/21 History acetaminophen 325 mg tablet 650 mg PO Q6H #30 tab 11/06/21 Rx docusate sodium 100 mg capsule 100 mg PO BID #60 cap 11/06/21 Rx (Colace) ferrous sulfate 324 mg (65 mg 324 mg PO DAILY #60 tab 11/06/21 Rx iron) tablet,delayed release Patient History Medical History GERD (gastroesophageal reflux disease) Surgical History H/O wisdom tooth extraction S/P knee surgery S/P shoulder surgery S/P tonsillectomy and adenoidectomy Family History Family/Other Heart disease Uncle Grandmother Heart disease Breast cancer Grandfather Diabetes Father Diabetes Brother Thyroid disorder Social History Smoking Status: Never smoker Second Hand Exposure: No; Hx Alcohol Use: No Hx Substance Use: No Preferred Language: Bulgarian Communication Ability: Effective [employer] Required: No Beliefs That Will Affect Care: None marital status: Current Living Situation: Family Feels Safe at Home: Yes Assistive Devices: None Review of Systems Review of Systems: At least ten systems reviewed and negative except as noted in the HPI. Physical Exam Physical Exam: Please see Dr. Moe's addendum for physical exam. Results & Data Results & Data ([facility]) Vital Signs (Past 12 Hours) Vital Signs Temp Pulse Pulse Resp BP BP Pulse Ox 11/07/21 10:54 36.8 C 78 16 112/67 11/07/21 07:51 37.2 C 87 18 111/66 98 11/07/21 04:35 36.7 C 91 H 16 102/62 97 Laboratory Results Short CBC 11/06/21 11/07/21 Range/Units 16:50 05:40 WBC 9.18 (4.8-10.8) K/uL Hgb 7.1 L 6.3 L* (12.0-16.0) g/dL Hct 21.3 L 19.0 L* (37-47) % Plt Count 131 (130-400) K/uL Diagnostic Findings Obstetrics Ultrasound 11/05/21 19:36 ULTRASOUND OF THE PELVIS CLINICAL HISTORY: Pelvic pain. Hypotension. .. COMPARISON STUDY: Pelvic ultrasound dated 10/22/2021. TECHNIQUE: Real-time, grayscale, and color flow sonography of the pelvis is performed transabdominally. Images are reviewed in the transverse and longitudinal planes. FINDINGS: Uterus: The uterus is normal in size and echotexture, measuring 10.0 x 5.1 x 5.9 cm. Endometrium: The endometrium is thickened and heterogeneous measuring up to 1.9 cm. No intrauterine gestation is identified. Ovaries: The ovaries were not visualized due to hemorrhage in the pelvis. Pelvis: Complex free fluid in the pelvis likely represents hemorrhage. Free fluid is also seen below the liver. There is a 2.5 cm complex structure containing a yolk sac and pole anterior to the uterus in the right adnexa. This is consistent with an ectopic . The crown-rump length measures 4.37 cm, corresponding to an estimated age of 6 weeks 1 day. IMPRESSION: 1. An ectopic is identified anterior to the uterus slightly to the right of midline. 2. Hemoperitoneum throughout the pelvis indicates rupturing ectopic. Surgical assessment is advised. 3. The ovaries were not visualized due to surrounding hemoperitoneum. 4. The endometrium is thickened and heterogeneous measuring up to 1.9 cm. No intrauterine gestation is seen. ACT 112: Negative or not required by law. Electronically signed by: Wilfrid Cruz M.D. 11/05/2021 8:32 PM Pelvis Ultrasound 11/07/21 09:48 ULTRASOUND OF THE PELVIS CLINICAL HISTORY: Hemoperitoneum status post laparoscopy for ectopic . COMPARISON STUDY: Pelvic ultrasound dated 11/05/2021. TECHNIQUE: Real-time, grayscale, and color flow sonography of the pelvis is performed transabdominally. Images are reviewed in the transverse and longitudinal planes. FINDINGS: Uterus: The uterus is mildly enlarged and heterogeneous, measuring 11.1 x 5.7 x 6.6 cm. Endometrium: The endometrium is mildly thickened, measuring up to 1.5 cm. There is a small amount of complex fluid within the endometrial canal. Ovaries: The ovaries are normal in size and morphology. The right ovary measures 2.1 x 1.8 x 2.5 cm and the left ovary measures 2.4 x 1.5 x 1.7 cm. A 1.5 cm complex follicle is noted in the right ovary. Normal Doppler waveforms are shown within both ovaries. Pelvis: There is a small volume of complex free fluid in the right adnexa and adjacent to the fundus. No fluid is seen in the upper abdomen. No concerning adnexal lesion is seen. IMPRESSION: 1. There is a small volume of complex free fluid in the pelvis, likely representing residual hemoperitoneum. 2. No large volume hemoperitoneum is seen. 3. The uterus is mildly enlarged and heterogeneous with a small amount of complex fluid within the endometrial canal. 4. The ovaries are normal as visualized. ACT 112: Negative or not required by law. Electronically signed by: Wilfrid Cruz M.D. 11/07/2021 10:55 AM
--- NOTE | 2021-11-07 12:31 | Communication Note ---
Date of Service: November 07, 2021 41-year-old woman who presented 2 days ago with syncopal episodes and was found to have ruptured ectopic status post laparoscopic evacuation of clots and removal of right fallopian tube. Patient reported 2 episodes of syncope on the day of presentation. These were witnessed and he does not recall hitting her head. However, she stated that her reported that it is possible she might have hit her head based on how she was laying when he found her. She reports headache since presentation mostly in the back of the head, described as pulsating, moderate. Patient currently reports some nausea. Denies dizziness. On exam, General: Well nourished, well hydrated, no acute distress, some tenderness on palpation of right parieto-occipital area but no discernible swelling or laceration Eyes: PERRL, conjunctivae normal, not +pallor, anicteric sclerae, EOM intact bilaterally ENMT: External ear and nose normal, oropharynx normal Respiratory: Normal respiratory effort, no respiratory distress, lungs clear to auscultation, no crackles and no wheezes Cardiovascular: RRR S1 S2 Gastrointestinal (Abdomen): Abdomen is not distended, soft, non-tender to palpation, no guarding, no palpable hepatosplenomegaly, normal bowel sounds Musculoskeletal: No cyanosis or clubbing, No pedal edema Neurologic: Alert and oriented x 3, No focal weakness, sensation grossly intact Psychiatric: Alert and oriented x 3, euthymic affect, no depressed affect Lab notable for hemoglobin of 6.3 Acute blood loss anemia Syncopal episodes Ruptured ectopic status post laparoscopic evacuation of clots and removal of right fallopian tube. With syncopal episode and possible head trauma, concussion is possible. Get CT head w/o contrast Pain management Patient got 2 PRBC prior to OR on day of presentation and got 1 PRBC post op yesterday Repeat USS pelvis this AM noted small vol complex free fluid likely residual hemoperitoneum Getting one PRBC this AM. Monitor post transfusion PRBC If Hb continues to drop, assess for other causes such as hemolytic anemia Hospitalist team will continue to follow Agree with other plans as detailed by Isis Ramos PA-C
[2021-11-07] MEDS: FERROUS SULFATE 325 MG/7.4 ML UDP PO SCH ×2 (12:56→17:17)
--- NOTE | 2021-11-07 14:49 | CT Scan Report ---
CT head/brain wo con CLINICAL HISTORY: headache 06/12 fall 11/05 Technique: Contiguous axial CT images of the head were acquired from the base of the skull to the jeffery sahra without intravenous contrast administration. Images were viewed in brain, subdural and bone windo ws. Automated dose lowering techniques and/or adjustment according to patient size were utilized for this exam. Comparison: None available at the time of this dictation. Findings: The ventricles, basal cisterns, and cerebral sulci are normal. There is no acute intracranial hemorrh age or evidence of acute territorial infarction. Neither mass effect, shift of the midline structures , nor abnormal extra-axial fluid collections are shown. Imaged portions of the paranasal sinuses and mastoid air cells are clear. The orbits appear normal. There are no acute fractures of the calvaria or scalp swelling. Impression: No acute intracranial hemorrhage, no evidence of acute territorial infarction or other acute intracra nial disease process. ACT 112: Negative or not required by law. Electronically signed by: Giovanni Garcia M.D. 11/07/2021 2:48 PM
[2021-11-07 16:15] LABS: Hematocrit (blood only) 22.8 % (37-47); Hemoglobin 7.7 g/dL (12.0-16.0); Mean Corpuscular Hemoglobin 30.7 pg (25-34); Mean Corpuscular Hgb Conc 33.8 g/dL (32-36); Mean Corpuscular Volume 90.8 fL (80-100); Mean Platelet Volume 9.8 fL (7.4-10.4); Platelet Count 152 K/uL (130-400); RDW Coefficient of Variation 14.3 % (11.5-14.5); RDW Standard Deviation 47.1 fL (36.4-46.3); Red Blood Count 2.51 M/uL (4.2-5.4); White Blood Count 10.46 K/uL (4.8-10.8)
--- NOTE | 2021-11-07 18:32 | Progress Note ---
Date of Service November 07, 2021 Assessment & Plan (1) Postop check: Plan: Pt feeling much better after 1PRBC transfused Hgb. is now>[address] scan reviewed Medicine wants to watch pt overnight and concussion care before disc. Plan Repeat H/H Am Repeat BHCG disch after Medicine clears pt Admission and Anticipated Discharge Date Admission Date: November 07, 2021 Results & Data ([facility]) Vital Signs (Past 12 Hours) Vital Signs Temp Pulse Pulse Resp BP BP Pulse Ox 11/07/21 16:00 36.9 C 84 18 107/69 100 11/07/21 12:35 36.7 C 81 18 112/72 98 11/07/21 11:58 36.9 C 79 18 107/63 100 11/07/21 11:30 36.9 C 78 18 129/74 100 11/07/21 11:15 36.9 C 79 18 114/72 100 11/07/21 10:54 36.8 C 78 16 112/67 11/07/21 07:51 37.2 C 87 18 111/66 98
[2021-11-08 06:03] LABS: Hemoglobin 7.4 g/dL (12.0-16.0); Mean Corpuscular Hemoglobin 31.1 pg (25-34); Mean Corpuscular Hgb Conc 33.6 g/dL (32-36); Mean Corpuscular Volume 92.4 fL (80-100); Mean Platelet Volume 9.5 fL (7.4-10.4); Platelet Count 145 K/uL (130-400); RDW Coefficient of Variation 14.6 % (11.5-14.5); RDW Standard Deviation 48.3 fL (36.4-46.3); Red Blood Count 2.38 M/uL (4.2-5.4); White Blood Count 8.18 K/uL (4.8-10.8)
[2021-11-08 06:29] LABS: BUN Creatinine Ratio 22.2 (10-20); Calcium 7.7 mg/dl (8.5-10.1); Creatinine Clr Calc Pharmacy 151.6 ml/min; Est GFR (African American) 135.8 ml/min; Est GFR (Non-African American) 117.2 ml/min; Potassium 3.9 mmol/L (3.5-5.1)
[2021-11-08] MEDS: IBUPROFEN 600 MG TAB PO PRN (08:43)
--- NOTE | 2021-11-08 08:46 | Surgery Progress Note ---
Date of Service November 08, 2021 Assessment & Plan (1) Symptomatic anemia: (2) Ruptured ectopic : (3) Shock after ectopic : Plan: discharged Admission and Anticipated Discharge Date Admission Date: November 07, 2021 Subjective doing fine no SOB or lightheadedness Review of Systems Review of Systems: All systems reviewed & are unremarkable except as noted in HPI & below Physical Exam Constitutional: WD/WN, vitals as above Gastrointestinal (Abdomen): Inspection/Auscultation: abdomen normal to inspection and + abdominal surgical incision Skin: no rashes, warm and dry Neurologic: patellar DTR's 2+ bilat, sensation intact Results & Data ([facility]) Vital Signs (Past 12 Hours) Vital Signs Temp Pulse Resp BP Pulse Ox 11/08/21 04:50 37.0 C 73 18 106/68 98 11/07/21 23:15 37.1 C 84 16 106/60 98 Laboratory Results 11/05/21 11/05/21 11/05/21 19:39 19:39 19:39 WBC 20.83 H RBC 2.97 L Hgb 9.3 L POC Hgb Hct 28.6 L POC Hct MCV 96.3 MCH 31.3 MCHC 32.5 RDW Std Deviation 44.2 RDW Coeff of Olegario 12.6 Plt Count 273 MPV 9.8 Immature Gran % (Auto) 0.6 Neut % (Auto) 91.2 Lymph % (Auto) 4.4 [place] % (Auto) 3.8 Eos % (Auto) 0.0 Baso % (Auto) 0.0 Neut # (Auto) 18.99 H Lymph # (Auto) 0.92 L [place] # (Auto) 0.80 H Eos # (Auto) 0.00 Baso # (Auto) 0.00 Immature Gran # (Auto) 0.12 H RBC Morphology Peripher Smr Path Cons PT INR APTT PTT Ratio POC Sodium Sodium 139 POC Potassium Potassium 4.4 POC Chloride Chloride 106 Carbon Dioxide 19 L POC Total CO2 Anion Gap 14 H POC Anion Gap POC BUN BUN 32 H Creatinine 1.06 POC Creatinine Est Cr Clr Drug Dosing 80.2 Est GFR ( Amer) 75.5 Est GFR (Non-Af Amer) 65.2 BUN/Creatinine Ratio 30.2 H Glucose 187 H POC Glucose (other) Calcium 8.4 L POC Ioniz Calcium Halie Total Bilirubin 0.4 Direct Bilirubin 0.0 AST 10 L ALT 12 Alkaline Phosphatase 47 Total Protein 6.3 Albumin 3.8 Lipase 12 HCG, Quant SARS-CoV-2, RNA, NAAT Blood Type O Positive Antibody Screen NEGATIVE Crossmatch See Detail 11/05/21 11/05/21 11/05/21 19:39 19:39 19:49 WBC RBC Hgb POC Hgb 9.2 L Hct POC Hct 27 L MCV MCH MCHC RDW Std Deviation RDW Coeff of Olegario Plt Count MPV Immature Gran % (Auto) Neut % (Auto) Lymph % (Auto) [place] % (Auto) Eos % (Auto) Baso % (Auto) Neut # (Auto) Lymph # (Auto) [place] # (Auto) Eos # (Auto) Baso # (Auto) Immature Gran # (Auto) RBC Morphology Peripher Smr Path Cons PT 10.3 INR 1.0 APTT 22.5 PTT Ratio 0.8 POC Sodium 139 Sodium POC Potassium 4.4 Potassium POC Chloride 107 Chloride Carbon Dioxide POC Total CO2 19 L Anion Gap POC Anion Gap 19.0 POC BUN 28 H BUN Creatinine POC Creatinine 0.9 Est Cr Clr Drug Dosing Est GFR ( Amer) Est GFR (Non-Af Amer) BUN/Creatinine Ratio Glucose POC Glucose (other) 191 H Calcium POC Ioniz Calcium Halie 1.21 Total Bilirubin Direct Bilirubin AST ALT Alkaline Phosphatase Total Protein Albumin Lipase HCG, Quant [id number] SARS-CoV-2, RNA, NAAT Blood Type Antibody Screen Crossmatch 11/05/21 11/06/21 11/06/21 19:52 00:07 06:10 WBC 21.40 H 14.18 H RBC 3.09 L 2.43 L Hgb 9.4 L 7.5 L POC Hgb Hct 28.4 L 22.1 L POC Hct MCV 91.9 90.9 MCH 30.4 30.9 MCHC 33.1 33.9 RDW Std Deviation 44.3 44.8 RDW Coeff of Olegario 13.2 13.6 Plt Count 180 166 MPV 10.3 10.1 Immature Gran % (Auto) 0.6 Neut % (Auto) 83.9 Lymph % (Auto) 8.6 [place] % (Auto) 6.8 Eos % (Auto) 0.0 Baso % (Auto) 0.1 Neut # (Auto) 11.90 H Lymph # (Auto) 1.22 [place] # (Auto) 0.97 H Eos # (Auto) 0.00 Baso # (Auto) 0.01 Immature Gran # (Auto) 0.08 H RBC Morphology Unremarkable Peripher Smr Path Cons PT INR APTT PTT Ratio POC Sodium Sodium POC Potassium Potassium POC Chloride Chloride Carbon Dioxide POC Total CO2 Anion Gap POC Anion Gap POC BUN BUN Creatinine POC Creatinine Est Cr Clr Drug Dosing Est GFR ( Amer) Est GFR (Non-Af Amer) BUN/Creatinine Ratio Glucose POC Glucose (other) Calcium POC Ioniz Calcium Halie Total Bilirubin Direct Bilirubin AST ALT Alkaline Phosphatase Total Protein Albumin Lipase HCG, Quant SARS-CoV-2, RNA, NAAT NEGATIVE Blood Type Antibody Screen Crossmatch 11/06/21 11/06/21 11/06/21 06:52 10:00 16:50 WBC RBC Hgb 6.9 L* 7.1 L POC Hgb Hct 20.4 L* 21.3 L POC Hct MCV MCH MCHC RDW Std Deviation RDW Coeff of Olegario Plt Count MPV Immature Gran % (Auto) Neut % (Auto) Lymph % (Auto) [place] % (Auto) Eos % (Auto) Baso % (Auto) Neut # (Auto) Lymph # (Auto) [place] # (Auto) Eos # (Auto) Baso # (Auto) Immature Gran # (Auto) RBC Morphology Peripher Smr Path Cons PT INR APTT PTT Ratio POC Sodium Sodium POC Potassium Potassium POC Chloride Chloride Carbon Dioxide POC Total CO2 Anion Gap POC Anion Gap POC BUN BUN Creatinine POC Creatinine Est Cr Clr Drug Dosing Est GFR ( Amer) Est GFR (Non-Af Amer) BUN/Creatinine Ratio Glucose POC Glucose (other) Calcium POC Ioniz Calcium Halie Total Bilirubin Direct Bilirubin AST ALT Alkaline Phosphatase Total Protein Albumin Lipase HCG, Quant 3552 SARS-CoV-2, RNA, NAAT Blood Type Antibody Screen Crossmatch 11/07/21 11/07/21 11/08/21 05:40 15:58 05:53 WBC 9.18 10.46 RBC 2.07 L 2.51 L Hgb 6.3 L* 7.7 L POC Hgb Hct 19.0 L* 22.8 L POC Hct MCV 91.8 90.8 MCH 30.4 30.7 MCHC 33.2 33.8 RDW Std Deviation 47.4 H 47.1 H RDW Coeff of Olegario 14.3 14.3 Plt Count 131 152 MPV 9.8 9.8 Immature Gran % (Auto) Neut % (Auto) Lymph % (Auto) [place] % (Auto) Eos % (Auto) Baso % (Auto) Neut # (Auto) Lymph # (Auto) [place] # (Auto) Eos # (Auto) Baso # (Auto) Immature Gran # (Auto) RBC Morphology Peripher Smr Path Cons PT INR APTT PTT Ratio POC Sodium Sodium POC Potassium Potassium POC Chloride Chloride Carbon Dioxide POC Total CO2 Anion Gap POC Anion Gap POC BUN BUN Creatinine POC Creatinine Est Cr Clr Drug Dosing Est GFR ( Amer) Est GFR (Non-Af Amer) BUN/Creatinine Ratio Glucose POC Glucose (other) Calcium POC Ioniz Calcium Halie Total Bilirubin Direct Bilirubin AST ALT Alkaline Phosphatase Total Protein Albumin Lipase HCG, Quant 1228 SARS-CoV-2, RNA, NAAT Blood Type Antibody Screen Crossmatch 11/08/21 11/08/21 05:53 05:53 WBC 8.18 RBC 2.38 L Hgb 7.4 L POC Hgb Hct 22.0 L POC Hct MCV 92.4 MCH 31.1 MCHC 33.6 RDW Std Deviation 48.3 H RDW Coeff of Olegario 14.6 H Plt Count 145 MPV 9.5 Immature Gran % (Auto) Neut % (Auto) Lymph % (Auto) [place] % (Auto) Eos % (Auto) Baso % (Auto) Neut # (Auto) Lymph # (Auto) [place] # (Auto) Eos # (Auto) Baso # (Auto) Immature Gran # (Auto) RBC Morphology Peripher Smr Path Cons PT INR APTT PTT Ratio POC Sodium Sodium 140 POC Potassium Potassium 3.9 POC Chloride Chloride 108 H Carbon Dioxide 26 POC Total CO2 Anion Gap 6 POC Anion Gap POC BUN BUN 12 Creatinine 0.54 L POC Creatinine Est Cr Clr Drug Dosing 151.6 Est GFR ( Amer) 135.8 Est GFR (Non-Af Amer) 117.2 BUN/Creatinine Ratio 22.2 H Glucose 97 POC Glucose (other) Calcium 7.7 L POC Ioniz Calcium Halie Total Bilirubin Direct Bilirubin AST ALT Alkaline Phosphatase Total Protein Albumin Lipase HCG, Quant SARS-CoV-2, RNA, NAAT Blood Type Antibody Screen Crossmatch
[2021-11-08] MEDS: FERROUS SULFATE 325 MG/7.4 ML UDP PO SCH (09:21)
--- NOTE | 2021-11-08 11:22 | Hospitalist Progress Note ---
Date of Service November 08, 2021 Assessment & Plan (1) Ruptured ectopic : (2) Status post laparoscopy: Plan: Patient is a 41 yr female POD #3 s/p laparoscopic abdominal surgery for ruptured ectopic with symptomatic anemia and headache. Ruptured Ectopic --Pelvic USD: showing ruptured right ectopic with hemoperitoneum --Repeat USD USD:There is a small volume of complex free fluid in the pelvis, likely representing residual hemoperitoneum. No large volume hemoperitoneum is seen. The uterus is mildly enlarged and heterogeneous with a small amount of complex fluid within the endometrial canal. The ovaries are normal as visualized. --S/P laparoscopic abdominal surgery with clot removal and removal of right fallopian tube S/P PRBC transfusion Monitor CBC Pain is controlled Management as per [facility] (3) Symptomatic anemia: Plan: Acute blood loss anemia secondary to above S/P PRBCs No evidence of hemolysis on peripheral smear Hb 7.4 today Advised to get repeat CBC in 1-2 weeks and follow up with PCP (4) Headache: Plan: Syncopal episodes likely due to Concussion/Head trauma due to fall in setting of acute blood loss anemia --CT Head:No acute intracranial hemorrhage, no evidence of acute territorial infarction or other acute intracranial disease process. Headache resolved Advised to follow up with Neurology if re-occurs DVT Px: SCDs Disposition: Per primary service Thank you for this consultation. We will follow the patient with you during their hospital stay. You can reach a member [facility]/12 via [employer]. Admission and Anticipated Discharge Date Admission Date: November 07, 2021 Subjective Patient is seen and examined at bedside Reports mild soreness on occipital region Feels tired Headache resolved Denies chest pain, dyspnea, dizziness, nausea, abd pain, change in vision Offers no other complaints Review of Systems Review of Systems: All systems reviewed & are unremarkable except as noted in Subjective Physical Exam Physical Exam: Physical Exam: Vitals signs as noted above General Appearance:Moderately built and nourished, no apparent distress Head: normocephalic, Atraumatic Eyes: normal inspection, EOMI Neck: supple, Trachea midline Respiratory/Chest: Normal breath sounds, CTA, No accessory muscle use Cardiovascular: S1, S2, No murmur Abdomen/GI:Soft, Non tender, Bowel sounds present Extremities/Musculoskeletal:normal inspection, no edema Neurologic/Psych:AAOX3, grossly no focal neurological deficits Skin: normal color, warm Results & Data Results & Data ([facility]) Vital Signs (Past 12 Hours) Vital Signs Temp Pulse Resp BP Pulse Ox 11/08/21 09:47 37.5 C 84 18 121/75 99 11/08/21 08:20 37.5 C 84 18 121/75 99 11/08/21 04:50 37.0 C 73 18 106/68 98 Laboratory Results Short CBC 11/07/21 11/08/21 Range/Units 15:58 05:53 WBC 10.46 8.18 (4.8-10.8) K/uL Hgb 7.7 L 7.4 L (12.0-16.0) g/dL Hct 22.8 L 22.0 L (37-47) % Plt Count 152 145 (130-400) K/uL BMP 11/08/21 05:53 Sodium 140 Potassium 3.9 Chloride 108 H Carbon Dioxide 26 BUN 12 Creatinine 0.54 L Glucose 97 Calcium 7.7 L
--- NOTE | 2021-11-11 21:03 | Anesthesiology Progress Note ---
Date of Service November 11, 2021 Anesthesia Post Procedure Pain Intensity Abdomen: Pain Intensity: 0 Head: Pain Intensity: 0 Transfer of Care Handoff Completed per policy Notes Mental Status: alert / awake / arousable and participated in evaluation Patient Amnestic to Procedure: Yes Nausea / Vomiting: adequately controlled Pain: adequately controlled Airway Patency, RR, SpO2: stable & adequate BP & HR: stable & adequate Hydration State: stable & adequate Anesthetic Complications: no major complications apparent and Pt Satisfied with anesthetic care Notes: pt seen and examined before d/c
== END 2021-11-08 13:10 | disposition home or self-care (01) | DRG 817 ==
LOC: ED 19:19 → 4E1 21:26 → ASU 21:26